=== PATIENT | female | born 1940 | race Caucasian/White ===

== ENCOUNTER → 2016-06-14 | Outpatient (CLI) | payer BC ==
--- NOTE | 2016-06-14 12:39 | MAMMOGRAPHY REPORT ---
BILATERAL DIGITAL SCREENING MAMMOGRAM WITH CAD: 06/14/2016 TECHNIQUE: Current study was also evaluated with a Computer Aided Detection (CAD) system. Bilatera l CC and MLO views were obtained. COMPARISON: Comparison is made to exams dated: 06/14/2015 mammogram, 06/11/2014 mammogram, 06/04/2012 ma mmogram, 05/30/2010 mammogram, 06/05/2013 mammogram, and 05/31/2011 mammogram - [facility] enter. BREAST COMPOSITION: There are scattered areas of fibroglandular density in both breasts. FINDINGS: No suspicious masses, calcifications, or areas of architectural distortion are noted in e ither breast. There has been no significant interval change compared to prior exams. Small benign-a ppearing mass in the left lateral breast is stable. Bilateral benign appearing calcifications are a lso not significantly changed. IMPRESSION: ACR BI-RADS CATEGORY 2: BENIGN There is no mammographic evidence of malignancy. A 1 year screening mammogram is recommended. The p atient will receive written notification of the results. Approximately 10% of breast cancers are not detected with mammography. A negative mammographic repor t should not delay biopsy if a clinically suggestive mass is present. Irene Guy M.D. ah/:06/14/2016 12:10:56 Rasper Machine Operator: Leana GARCIA)(Rehana), [facility] letter sent: Normal 1/2 BI-RADS Code: ACR BI-RADS Category 2: Benign
== END | disposition home or self-care (01) ==
LOC: C.MAMM 10:23
PROVIDERS: ATTEND Family Medicine
DX: Z12.31 Encounter for screening mammogram for malignant neoplasm of breast (principal)

== ENCOUNTER → 2017-06-19 | Outpatient (CLI) | payer BC ==
--- NOTE | 2017-06-19 15:12 | MAMMOGRAPHY REPORT ---
BILATERAL DIGITAL SCREENING MAMMOGRAM TOMOSYNTHESIS WITH CAD: 06/19/2017 CLINICAL HISTORY: Routine screening. Patient has no complaints. TECHNIQUE: Breast tomosynthesis in addition to standard 2D mammography was performed. Current study was also evaluated with a Computer Aided Detection (CAD) system. COMPARISON: Comparison is made to exams dated: 06/14/2016 mammogram, 06/14/2015 mammogram, 06/11/2014 mamm ogram, 06/05/2013 mammogram, 06/04/2012 mammogram, and 05/31/2011 mammogram - [facility] er. BREAST COMPOSITION: There are scattered areas of fibroglandular density in both breasts. FINDINGS: There is a 6 mm focal asymmetry in the upper outer anterior left breast, for which additio nal targeted ultrasound and possible additional mammographic views are recommended. No other suspicious mass, architectural distortion or cluster of microcalcifications is seen. IMPRESSION: ACR BI-RADS CATEGORY 0: INCOMPLETE EVALUATION: NEED ADDITIONAL IMAGING EVALUATION The 6 mm focal asymmetry in the left upper outer breast needs additional evaluation. The patient will be called to schedule an appointment. Approximately 10% of breast cancers are not detected with mammography. A negative mammographic report should not delay biopsy if a clinically suggestive mass is present. Yadi Vera M.D. ay/:06/19/2017 13:56:02 Mortgage Broker: Kaitlyn LEUNG(Isai)(Rehana)(BD), [facility] letter sent: Addl Imaging 0 BI-RADS Code: ACR BI-RADS Category 0: Incomplete Evaluation: Need Additional Imaging Evaluation
== END | disposition home or self-care (01) ==
LOC: C.MAMM 10:26
PROVIDERS: ATTEND Family Medicine
DX: Z12.31 Encounter for screening mammogram for malignant neoplasm of breast (principal); N64.89 Other specified disorders of breast

== ENCOUNTER → 2017-06-29 | Outpatient (CLI) | payer BC ==
--- NOTE | 2017-07-02 12:44 | MAMMOGRAPHY REPORT ---
ULTRASOUND OF LEFT BREAST: 06/29/2017 CLINICAL HISTORY: Callback from screening mammogram for left breast mass. COMPARISON: Comparison is made to exams dated: 06/19/2017 mammogram, 06/14/2016 mammogram, 06/14/2015 adama mogram, 06/11/2014 mammogram, 06/05/2013 mammogram, and 06/04/2012 mammogram - [facility] er. TECHNIQUE: Real-time targeted ultrasound of the left breast was performed. FINDINGS: Real-time, high-resolution targeted ultrasound was performed of the left upper outer quadra nt in the region of the mass seen on the recent screening mammogram. In the left breast at 3:00 darlene areolar region, there is a lobulated circumscribed 5 x 5 x 3 mm mass. The mass is predominantly anec hoic and contains a thin internal septation, however, there is a nodular isoechoic portion seen withi n the mass which could represent proteinaceous debris within a cyst, however, a solid component canno t be excluded. This corresponds with the mammographic mass and is indeterminant. Recommend ultrasou nd-guided aspiration versus biopsy for further evaluation. IMPRESSION: ACR BI-RADS CATEGORY 4: SUSPICIOUS - FOLLOW-UP RECOMMENDED Circumscribed 5 mm mass in the left 3:00 periareolar breast on ultrasound, which corresponds with the mammographic mass. The mass likely represents a complicated cyst although a mixed cystic and solid mass is not excluded. Recommend ultrasound-guided aspiration for further evaluation, with conversion to ultrasound-guided biopsy if the mass does not completely aspirate. A phone call was made to the physician's office to confirm faxed results were received. The patient was verbally notified of the results. She tentatively scheduled the biopsy before leaving the depart ment. Irene Guy M.D. ah/:06/29/2017 11:06:57 English As A Second Language Instructor: Irene Guy MD, [facility] letter sent: Abnormal / BI-RADS Code: ACR BI-RADS Category 4: Suspicious
== END | disposition home or self-care (01) ==
LOC: C.MAMM 10:13
PROVIDERS: ATTEND Family Medicine
DX: N63.21 Unspecified lump in the left breast, upper outer quadrant (principal)

== ENCOUNTER → 2017-07-04 | Outpatient (CLI) | payer BC ==
--- NOTE | 2017-07-04 09:32 | Discharge Instructions ---
Discharge Instructions Procedure Procedure Date: Jul 04, 2017. Reason for visit: Left Mass Asp Vs Bx. Discharge Discharge Date: Jul 04, 2017. Discharge Diagnosis: status post breast biopsy Instructions Activity Recommendations: Additional Limitations (see below) Return to School/Work: no limitations Recommended Home Diet: No Limitations Provider Instructions: ACTIVITY RECOMMENDATIONS: * No lifting, pushing, pulling or exercising the affected side for three days. RETURN TO SCHOOL/WORK: * You may return to work/school after the procedure, but do not perform any strenuous activities for 24 to 48 hours. MEDICATIONS: * Tylenol (two 325 mg) every four to six hours if needed for mild pain (if not allergic to Tylenol). DIET: * Resume previous diet. SPECIAL CARE INSTRUCTIONS: * Keep biopsy site dry for 24 hours. May shower after 24 hours, but do not soak (bathe) incision. * May remove Tegaderm (plastic patch) tomorrow AFTER showering. * Leave the steri-strips on for one week. Allow the steri-strips to fall off by themselves. If not off after one week, you may remove them. You may place a Bandaid crosswise over the strips, if desired. * Apply ice 10 minutes on and 10 minutes off as needed. * Wear a bra at bedtime to sleep more comfortably for 2-3 days. * Your referring physician should have the results after approximately 5 to 7 business days. * Call for unusual bleeding, fever, drainage, etc or if you have any questions call during normal business hours or after hours call Dr Guy, . FOLLOW UP VISIT: Follow-up with Referring Physician as scheduled. Edd Landryy Recommendations: Call your doctor if: * Temperature above 101 degrees * Pain not relieved by pain medicine ordered * There is increased drainage or redness from any incision * You have any unanswered questions or concerns. Your Doctors Instructions noted above were prepared by provider Irene Guy. Patient Signature Section: Patient Instructions Signature Page Pat Lopesleydi Patient (or Guardian) Signature/Date: I have read and understand the instructions given to me by my caregivers. Caregiver/RN/Doctor Signature/Date: The above-named patient and/or guardian has received patient instructions on this date. + Original Patient Signature Page (only) stays with chart. Please make copy for patient.
--- NOTE | 2017-07-05 07:47 | MAMMOGRAPHY REPORT ---
ULTRASOUND GUIDED BIOPSY LEFT BREAST: 07/04/2017 CLINICAL HISTORY: Left 3:00 breast mass. PATIENT CONSENT: The procedure, risks and benefits were discussed with the patient and informed writt en consent was obtained. A timeout was performed immediately prior to the procedure. PROCEDURE DESCRIPTION: With ultrasound guidance, aseptic technique, and lidocaine as the local anesth etic (1% lidocaine to anesthetize the skin and 1% lidocaine with epinephrine to anesthetize the deepe r tissues), an attempt was made to aspirate the mass in the left 3:00 breast. The mass partially asp irated, however, the isoechoic portion did not completely aspirate, therefore, the decision was made to biopsy the residual mass. With ultrasound guidance, the mass of concern in the left 3:00 breast w as sampled 3 times with a 14-gauge Achieve biopsy needle. Immediately thereafter, with ultrasound gu idance, aseptic technique, and lidocaine as the local anesthetic, a metallic localizer clip was place d at the biopsy site. Direct pressure was applied to the site immediately post procedure and hemosta sis was achieved. Postprocedure unilateral mammograms were performed to confirm clip placement. The patient tolerated the procedure without complication. She was given wound care instructions. The sp ecimens were sent to pathology for analysis. COMPARISON: Comparison is made to exams dated: 06/29/2017 ultrasound, 06/19/2017 mammogram, 06/14/2016 m ammogram, 06/14/2015 mammogram, 06/11/2014 mammogram, and 06/05/2013 mammogram - [facility]. IMPRESSION: ULTRASOUND GUIDED BIOPSY Ultrasound-guided core needle biopsy of the left 3:00 breast mass, with clip placement. The patient will receive pathology results from her referring provider. Irene Guy M.D. /:07/04/2017 09:34:20 Drag Down: Larissa LEUNG(Isai)(Rehana), [facility]
--- NOTE | 2017-07-05 07:52 | MAMMOGRAPHY REPORT ---
UNILATERAL LEFT DIGITAL DIAGNOSTIC MAMMOGRAM TOMOSYNTHESIS: 07/04/2017 CLINICAL HISTORY: Status post left breast biopsy. TECHNIQUE: Breast tomosynthesis in addition to standard 2D mammography was performed. Postprocedura l left CC and ML tomosynthesis images were obtained. COMPARISON: Comparison is made to exams dated: 06/29/2017 ultrasound, 06/19/2017 mammogram, 06/14/2016 m ammogram, 06/14/2015 mammogram, 06/11/2014 mammogram, and 06/05/2013 mammogram - [facility]. BREAST COMPOSITION: There are scattered areas of fibroglandular density in the left breast. FINDINGS: A new biopsy marker clip is seen at the site of the biopsied mass in the left breast at mario roximately 3:00. No significant postbiopsy hematoma is seen. IMPRESSION: POST PROCEDURE IMAGING FOR MARKER PLACEMENT New biopsy marker clip status post left breast biopsy. Pathology results are pending. Approximately 10% of breast cancers are not detected with mammography. A negative mammographic report should not delay biopsy if a clinically suggestive mass is present. Irene Guy M.D. /:07/04/2017 09:41:44 Bible Reader: Fanny LEUNG(Isai)(M), [facility] BI-RADS Code: Post Procedure Imaging For Marker Placement
== END | disposition home or self-care (01) ==
LOC: C.MAMM 08:59
PROVIDERS: ATTEND Family Medicine
DX: N63.20 Unspecified lump in the left breast, unspecified quadrant (principal); N60.12 Diffuse cystic mastopathy of left breast; N60.82 Other benign mammary dysplasias of left breast

== ENCOUNTER → 2017-07-13 | Outpatient (CLI) | payer BC ==
[2017-07-13 11:09] LABS: BASO % 0.8 %; BASO ABS # 0.06 K/uL (0-0.2); EOS % 3.5 %; EOS ABS # 0.27 K/uL (0-0.5); HEMATOCRIT 39.5 % (37-47); HEMOGLOBIN 13.9 g/dL (12.0-16.0); IG# 0.01 K/uL (0.00-0.02); LYMPH % 23.1 %; LYMPH ABS # 1.79 K/uL (1.2-3.4); MEAN CELL VOLUME 90.2 fL (80-100); MEAN CORPUSCULAR HEMOGLOBIN 31.7 pg (25-34); MEAN CORPUSCULAR HGB CONC 35.2 g/dl (32-36); MEAN PLATELET VOLUME 10.1 fL (7.4-10.4); MONO % 7.6 %; MONO ABS # 0.59 K/uL (0.11-0.59); NEUT % 64.9 %; NEUT ABS # 5.02 K/uL (1.4-6.5); PLATELET COUNT 280 K/uL (130-400); RED CELL DISTRIBUTION WIDTH CV 14.2 % (11.5-14.5); RED CELL DISTRIBUTION WIDTH SD 46.8 fL (36.4-46.3); WHITE BLOOD COUNT 7.74 K/uL (4.8-10.8)
[2017-07-13 11:26] LABS: ALBUMIN 3.5 gm/dl (3.4-5.0); ALT/SGPT 27 U/L (12-78); AST/SGOT 22 U/L (15-37); BLOOD UREA NITROGEN 16 mg/dl (7-18); CALCIUM 9.2 mg/dl (8.5-10.1); CARBON DIOXIDE 29 mmol/L (21-32); CREATININE 0.84 mg/dl (0.60-1.20); GLUCOSE 96 mg/dl (70-99); POTASSIUM 3.6 mmol/L (3.5-5.1); SODIUM 137 mmol/L (136-145)
[2017-07-13 11:35] LABS: ALKALINE PHOSPHATASE 76 U/L (45-117); TOTAL PROTEIN 7.4 gm/dl (6.4-8.2)
== END | disposition home or self-care (01) ==
LOC: C.LABBC 09:02
PROVIDERS: ATTEND Family Medicine
DX: R53.83 Other fatigue (principal)

== ENCOUNTER 2018-09-27 04:52 | Inpatient (IN) ==
--- NOTE | 2018-09-12 15:04 | Anesthesiology Consultation ---
Date of Service September 12, 2018 Assessment & Plan (1) Encounter for pre-operative examination: Chart Review Chart Review: Acceptable Risk for Surgery and Patient NOT seen in Pre Admission Testing History Surgery Operation Date: 09/27/18 07:00 Proposed Procedures p Right Anterior Total Hip Arthroplasty - Stephen Arnold DO Height/Weight Height: 5 ft 2 in Weight: 95.254 kg Allergies Allergy/AdvReac Type Severity Reaction Status Date / Time No Known Allergies Allergy Verified 08/20/18 12:16 Medications Home Medications Medication Instructions Recorded Confirmed Last Taken [place]/Co 10 1 tab PO QAM 01/03/18 08/20/18 Unknown cyanocobalamin (vitamin B-12) 1,000 mcg PO QAM 01/03/18 08/20/18 Unknown [Vitamin B-12] glucosamine sulfate [Glucosamine] 500 mg PO QAM 01/03/18 08/20/18 Unknown ibuprofen [Advil] 200 mg PO QID PRN 01/03/18 08/20/18 Unknown lisinopril-hydrochlorothiazide 1 tab PO QAM 01/03/18 08/20/18 02/07/18 08:00 multivitamin 1 tab PO QAM 01/03/18 08/20/18 Unknown omeprazole 20 mg PO QAM 01/03/18 08/20/18 02/08/18 04:15 simvastatin 20 mg PO HS 01/03/18 08/20/18 02/07/18 21:00 aspirin 325 mg PO HS 08/20/18 08/20/18 Unknown Past Medical History Medical History GERD (gastroesophageal reflux disease) Hyperlipidemia Hypertension Obesity Osteoarthritis Past Family History Family History Grandmother Diabetes mellitus, type 2 Past Surgical History Surgical History History of hysteroscopy D+C History of left hip replacement 02/08/18: SAB x1 at L3-L4 at [facility] Hx of colonoscopy Hx of hysterectomy BSO Hx of laparoscopy DERMOID CYST REMOVED Nausea and vomiting after administration of anesthetic agent Social History Smoking Status: Never smoker Do You Dip or Chew Tobacco: No Hx Alcohol Use: Yes Alcohol type: wine alcohol intake frequency: holidays/special occasions only Hx Substance Use: No substance use type: does not use Testing Laboratory Results 09/10/18 WBC 10.17 H/H 13.8/39.3 PLATELETS 291 SODIUM 138 POTASSIUM 3.5 CHLORIDE 104 CO2 27 BUN 20 CREATININE 0.90 GLUCOSE 104 PT 10.5 PTT 28.7 INR 1.0 T&S O+Ab- Electrocardiogram Date: 09/10/18 Findings: + NSR @ (75) Chest X-Ray Date: 09/10/18 Findings: + NAD Cardiac silhouette is mildly enlarged, unchanged. Moderate hiatal hernia. Calcification of the thoracic aortic arch. Mild linear retrocardiac opacities suggest atelectasis/scarring. Sigmoidal scoliosis of the thoracolumbar spine.
--- NOTE | 2018-09-26 16:27 | History & Physical Report ---
Date of Service September 26, 2018 Assessment & Plan (1) Osteoarthritis of right hip: We will proceed with a right anterior total hip arthroplasty. Postoperatively she will be placed on aspirin for DVT prophylaxis and kept overnight for postoperative medical management. She plans to use energy p hysical therapy upon discharge. Present on Admission?: Yes History of Present Illness Chief Complaint: Primary osteoarthritis of the right hip Primary Care Provider: William Stewart is a pleasant 78-year-old female who presented to our office with complaints of bilateral hip and groin pain. X-rays and clinical examination were diagnostic for primary osteoarthritis of both hips. She underwent a left anterior total hip arthroplasty in February 2018 and did very well with that. Unfortunately she still having a lot of pain in her right hip. She has elected to proceed with a right anterior total hip arthroplasty. Allergies Allergy/AdvReac Type Severity Reaction Status Date / Time No Known Allergies Allergy Verified 08/20/18 12:16 Home Medications Home Medications Medication Instructions Recorded Confirmed Type [place]/Co 10 1 tab PO QAM 01/03/18 08/20/18 History cyanocobalamin (vitamin B-12) 1,000 mcg PO QAM 01/03/18 08/20/18 History [Vitamin B-12] glucosamine sulfate [Glucosamine] 500 mg PO QAM 01/03/18 08/20/18 History ibuprofen [Advil] 200 mg PO QID PRN 01/03/18 08/20/18 History lisinopril-hydrochlorothiazide 1 tab PO QAM 01/03/18 08/20/18 History multivitamin 1 tab PO QAM 01/03/18 08/20/18 History omeprazole 20 mg PO QAM 01/03/18 08/20/18 History simvastatin 20 mg PO HS 01/03/18 08/20/18 History aspirin 325 mg PO HS 08/20/18 08/20/18 History Past Med/Surg History Medical History GERD (gastroesophageal reflux disease) Hyperlipidemia Hypertension Obesity Osteoarthritis Surgical History History of hysteroscopy D+C History of left hip replacement 02/08/18: SAB x1 at L3-L4 at [facility] Hx of colonoscopy Hx of hysterectomy BSO Hx of laparoscopy DERMOID CYST REMOVED Nausea and vomiting after administration of anesthetic agent Family History Grandmother Diabetes mellitus, type 2 Social History Preferred Language: Sami Communication Ability: Effective Beliefs That Will Affect Care: None Current Living Situation: Spouse Feels Safe at Home: Yes Smoking Status: Never smoker Second Hand Exposure: No Hx Alcohol Use: Yes Alcohol type: wine Hx Substance Use: No Review of Systems All systems reviewed & are unremarkable except as noted in HPI & below Physical Exam Constitutional: WD/WN, vitals as above Eyes: PERRL, conjunctivae normal, anicteric sclerae ENMT: external ear and nose normal, oropharynx normal Neck: trachea midline, no thyromegaly Respiratory: normal respiratory effort Cardiovascular: RRR, no murmur, no edema Gastrointestinal (Abdomen): normal bowel sounds, soft, nontender, no hepatosplenomegaly Musculoskeletal: Physical examination of the right hip reveals decreased range of motion with flexion, internal and external rotation. There is significant groin pain with forced internal rotation of the hip his leg lengths are essentially equal. Psychiatric: A+Ox3, euthymic affect Results & Data Diagnostic Findings Radiographs of the right hip and pelvis demonstrate advanced osteoarthritis with joint space narrowing osteophyte formation and ubgx-ae-wduo articulation.
[2018-09-27] MEDS ORDERED: LR 60ML/HR IV SCH (06:00)
[2018-09-27] MEDS ORDERED: ROPIVACAINE 0.5% HCL/PF 150 MG, BUPIVACAINE 0.5% MPF 30 ML, EPINEPHrine 30MG/30ML (OR U... INFIL SCH (06:00)
[2018-09-27] MEDS ORDERED: TRANEXAMIC ACID 1,000 MG **IV Pre-op IV SCH (06:00)
[2018-09-27] MEDS ORDERED: CEFAZOLIN 2000MG 2,000 MG/15 ML SYR IV SCH (06:00)
[2018-09-27] MEDS ORDERED: GABAPENTIN 300 MG PO SCH (06:00)
[2018-09-27] MEDS ORDERED: LR 500ML BOLUS, THEN 15ML/HR IV SCH (06:00)
[2018-09-27] MEDS ORDERED: ACETAMINOPHEN 500 MG TAB PO SCH (06:00)
[2018-09-27] MEDS ORDERED: FAMOTIDINE 20 MG TAB PO SCH (06:00)
[2018-09-27] MEDS ORDERED: MIDAZOLAM HCL 1 MG/ML 2ML VIAL ONE (06:24)
[2018-09-27] MEDS ORDERED: fentaNYL citrate 100 MCG/2 ML VIAL ONE (06:24)
[2018-09-27] MEDS ORDERED: BUPIVACAINE 0.5 % 5 MG/1 ML PF 10ML VIAL ONE (06:29)
[2018-09-27] MEDS ORDERED: ORTHO JOINT ANESTHETIC ONE (06:29)
[2018-09-27] MEDS ORDERED: TRANEXAMIC ACID 1,000 MG **IV Intra-op IV SCH (06:30)
--- NOTE | 2018-09-27 06:36 | History & Physical Bridge Note ---
Date of Service September 27, 2018 History & Physical Bridge Note I have examined the patient, reviewed the History & Physical and in the interval since the performance of the History & Physical I have noted the following changes of clinical significance: no changes noted
[2018-09-27] MEDS ORDERED: PHENYLEPHRINE 100MCG/ML 5ML SYR IV PRN (06:56)
[2018-09-27] MEDS ORDERED: ATROPINE SULFATE 0.1 MG/ML 10ML SYR IV PRN (06:56)
[2018-09-27] MEDS ORDERED: ePHEDrine sulfate 50 MG/ML AMP IV PRN (06:56)
[2018-09-27] MEDS ORDERED: HYDROmorphone INJ 1 MG/ML SYRINGE IV PRN (06:56)
[2018-09-27] MEDS ORDERED: ONDANSETRON INJ 2 MG/ML 2 ML VIAL IV PRN ×2 (06:56→10:01)
[2018-09-27] MEDS ORDERED: KETOROLAC 30 MG/ML VIAL IV PRN (06:56)
[2018-09-27] MEDS ORDERED: PROPOFOL IV EMULSION 10 MG/ML 20 ML VIAL IV ONE ×2 (07:18→07:45)
[2018-09-27] MEDS ORDERED: LIDOCAINE HCL 2% 2 ML VIAL/AMP(20MG/ML) INFIL ONE (07:18)
[2018-09-27] MEDS ORDERED: ePHEDrine sulfate 50 MG/ML AMP ONE (07:19)
[2018-09-27] MEDS ORDERED: ONDANSETRON INJ 2 MG/ML 2 ML VIAL ONE (07:19)
[2018-09-27] MEDS ORDERED: PHENYLEPHRINE 100MCG/ML 5ML SYR ONE (07:19)
--- NOTE | 2018-09-27 08:37 | Operative Report ---
Post Operative Report Pre & Post Diagnosis Operation Date: 09/27/18 07:00 Pre-Op Diagnosis: RIGHT HIP DEGENERATIVE JOINT DISEASE Post-Op Diagnosis: RIGHT HIP DEGENERATIVE JOINT DISEASE Procedure Operation Date: 09/27/18 07:00 Actual Procedures p Right Anterior Total Hip Arthroplasty, Uncemented(Right) - Stephen Arnold DO Surgeon Stephen Arnold DO Rn Teacher None Estimated Blood Loss 200 Findings Consistent with Post-Op Diagnosis Specimens Right femoral head Complications none Disposition Disposition: Recovery Room Indications Pat is a pleasant 78-year-old female who presented my office with complaints of bilateral hip pain. X-rays and clinical examination were diagnostic for primary osteoarthritis of both hips. She underwent a left anterior total hip arthroplasty in February 2018 and did well with that. Unfortunately she was still having a lot of right hip pain. She elected to undergo a right anterior total hip arthroplasty. Description of Procedure Implants used Biomet Taperloc total hip arthroplasty system with a size 8 standard offset Taperloc stem, a 48 mm G7 cup with a 25mm screw, an E1 polyethylene liner, a 32 mm ceramic head with a -3 neck. Patient arrived at the hospital for the above procedure. They were seen in the preoperative holding area and the operative extremity was identified and signed. They were given a spinal anesthetic. They were given a preoperative antibiotic and TXA. They were taken back To the operating room and laid on the table in the supine position. The leg was brought out through a Puristst leg positioner. The hip was then prepped and draped in sterile fashion. A timeout was done and the patient in upper extremities properly identified. An anterior approach was used. Dissection was taken down through the fascia and the tensor muscle belly was retracted laterally and the rectus was retracted medially. The circumflex vessels were identified and ligated. The capsule was then incised and tagged for later repair. The femoral neck was then cut and the femoral head was removed. The acetabulum was exposed. Time was spent doing a complete circumferential labral release. Sequential reaming of the acetabulum up to a size 47 reamer was done. Final reamings were done under fluoroscopy to ensure appropriate version. A Biomet 48 mm G7 cup was then impacted into place. A single 25 mm screw was placed. The E1 polyethylene liner was then snapped into place. Surrounding soft tissues were then injected with 100 cc of an orthopedic pain control cocktail. The proximal femur was then exposed. Sequential broaching up to a size 8 broach was done. Off that broach a size 32 head with a -3 neck was trialed. The hip was reduced and fluoroscopic images showed anatomic alignment of the implants in acceptable length. The broach was removed. The final size 8 standard offset Taperloc stem was then impacted into place. A ceramic 32 mm head with a -3 neck was then impacted into place in the hip was reduced. Final fluoroscopic images showed anatomic reduction of the hip. The capsule was then closed with #1 Vicryl suture. A dilute betadyne lavage was then done for 3 minutes. The joint was then irrigated with normal saline solution. The fascia was closed with #1 PDS suture. Skin was closed with 2-0 Vicryl, marcelle, and a Mary VAC dressing. The patient was then transferred to a hospital bed and taken to the post anesthesia care unit in stable condition. They tolerated the procedure well. I attest to the content of the Intraoperative Record and any orders documented therein. Any exceptions are noted below.
--- NOTE | 2018-09-27 08:58 | Fluoroscopy Report ---
FL hip RT 1V CLINICAL HISTORY: RIGHT ANTERIOR THApain COMPARISON STUDY: None FLUOROSCOPY TIME: 25 seconds NUMBER OF FLUOROSCOPIC IMAGES: 3 FINDINGS: Image intensifier was utilized for a right hip total arthroplasty IMPRESSION: Image intensifier usage for a total right hip arthroplasty. The above report was generated using voice recognition software. It may contain grammatical, syntax or spelling errors. Electronically signed by: Vivek Denny M.D. 09/27/2018 8:56 AM
--- NOTE | 2018-09-27 09:23 | XRay Report ---
XR hip 1V RT w pelvis HISTORY: 78 years-old Female IN PACU - A/P PELVIS and LATERAL HIP right hip total joint arthroplast y. History of degenerative joint disease COMPARISON: Pelvis and left hip radiographs 02/08/2018 TECHNIQUE: AP view of the pelvis with crosstable lateral view of the right hip FINDINGS: Bilateral hip total joint arthroplasties, new on the right. Lateral skin marcelle are noted with expec yan postsurgical soft tissue swelling and deep tissue air with surgical drainage catheter. No acute f racture or retained foreign body. IMPRESSION: Satisfactory alignment of the right hip total joint arthroplasty. The above report was generated using voice recognition software. It may contain grammatical, syntax o r spelling errors. Electronically signed by: Phillip Saini M.D. 09/27/2018 9:22 AM
--- NOTE | 2018-09-27 09:47 | Anesthesiology Progress Note ---
Date of Service September 27, 2018 Anesthesia Post Procedure Vital Signs Vital Signs: Temp Pulse Resp BP Pulse Ox 09/27/18 09:40 36.4 C L 65 16 121/74 97 09/27/18 09:30 36.4 C L 63 15 116/81 93 09/27/18 09:20 36.6 C 63 16 128/78 94 09/27/18 09:10 36.6 C 73 16 128/93 97 09/27/18 09:00 36.6 C 65 21 114/65 96 09/27/18 08:50 36.6 C 73 16 104/65 100 09/27/18 08:41 36.6 C 74 16 103/68 98 09/27/18 05:35 36.8 C 88 18 143/79 H 96 Transfer of Care Handoff Completed per policy Notes Mental Status: alert / awake / arousable Patient Amnestic to Procedure: Yes Nausea / Vomiting: adequately controlled Pain: adequately controlled Airway Patency, RR, SpO2: stable & adequate BP & HR: stable & adequate Hydration State: stable & adequate Anesthetic Complications: no major complications apparent
[2018-09-27] MEDS ORDERED: NALOXONE HCL 0.4 MG/1 ML VIAL/CARP IV PRN (10:01)
[2018-09-27] MEDS ORDERED: MAGNESIUM HYDROXIDE SUSP 30 ML UDC PO PRN (10:01)
[2018-09-27] MEDS ORDERED: OXYCODONE HCL IR 5 MG TAB (IMMEDIATE RELEASE) PO PRN (10:01)
[2018-09-27] MEDS ORDERED: BISACODYL 10 MG SUPP PR PRN (10:01)
[2018-09-27] MEDS ORDERED: METOCLOPRAMIDE HCL INJ 5 MG/ML 2 ML VIAL IV PRN (10:01)
[2018-09-27] MEDS ORDERED: HYDROmorphone INJ 0.5 MG/0.5 ML SYR IV PRN (10:01)
[2018-09-27] MEDS: SODIUM CHLORIDE 0.9% 1000ML 1,000 ML IV SCH ×2 (10:23→19:45)
[2018-09-27] MEDS: MULTIVITAMIN TAB PO SCH (10:25)
[2018-09-27] MEDS: ASPIRIN 81 MG ECTAB PO SCH ×2 (10:25→20:52)
[2018-09-27] MEDS: LISINOPRIL/HCTZ 10/12.5MG TAB PO SCH (10:25)
[2018-09-27] MEDS: DOCUSATE SODIUM 100 MG CAP PO SCH ×2 (10:26→20:52)
[2018-09-27] MEDS: PANTOprazole 40 MG TAB PO SCH (10:26)
[2018-09-27] MEDS: KETOROLAC TROMETHAMINE 15 MG/ML VIAL IV SCH ×3 (12:39→23:36)
[2018-09-27] MEDS: ACETAMINOPHEN 500 MG TAB PO SCH ×2 (13:37→20:52)
[2018-09-27] MEDS: CEFAZOLIN 2000MG 2,000 MG/15 ML SYR IV SCH ×2 (13:37→20:51)
[2018-09-27] MEDS ORDERED: SENNA 8.6 MG TAB PO SCH (21:00)
[2018-09-27] MEDS ORDERED: SIMVASTATIN 20 MG TAB PO SCH (21:00)
[2018-09-28] MEDS: KETOROLAC TROMETHAMINE 15 MG/ML VIAL IV SCH (05:34)
[2018-09-28] MEDS: ACETAMINOPHEN 500 MG TAB PO SCH (05:34)
[2018-09-28 07:08] LABS: Basophils # (auto) 0.03 K/uL (0-0.2); Basophils % (auto) 0.2 %; Eosinophils % (auto) 0.7 %; Hematocrit (blood only) 32.4 % (37-47); Hemoglobin 11.7 g/dL (12.0-16.0); Immature Granulocytes # (auto) 0.03 K/uL (0.00-0.02); Immature Granulocytes % (auto) 0.2 %; Lymphocytes # (auto) 1.43 K/uL (1.2-3.4); Lymphocytes % (auto) 10.5 %; Mean Corpuscular Hgb Conc 36.1 g/dL (32-36); Mean Corpuscular Volume 87.3 fL (80-100); Mean Platelet Volume 10.3 fL (7.4-10.4); Monocytes # (auto) 1.07 K/uL (0.11-0.59); Monocytes % (auto) 7.8 %; Neutrophils # (auto) 11.01 K/uL (1.4-6.5); Neutrophils % (auto) 80.6 %; Platelet Count 201 K/uL (130-400); RDW Coefficient of Variation 14.9 % (11.5-14.5); RDW Standard Deviation 47.7 fL (36.4-46.3); Red Blood Count 3.71 M/uL (4.2-5.4); White Blood Count 13.67 K/uL (4.8-10.8)
[2018-09-28 07:33] LABS: BUN Creatinine Ratio 23.5 (10-20); Calcium 8.4 mg/dl (8.5-10.1); Creatinine Clr Calc Pharmacy 60.3 ml/min; Est GFR (African American) 79.4; Est GFR (Non-African American) 68.5; Potassium 3.6 mmol/L (3.5-5.1)
[2018-09-28] MEDS ORDERED: TRAMADOL HCL 50 MG TABLET PO PRN (07:54)
--- NOTE | 2018-09-28 07:57 | Orthopedic Progress Note ---
Date of Service September 28, 2018 Assessment & Plan (1) Osteoarthritis of right hip: Overall she is doing fairly well. She is a little bit of soreness in the lateral aspect of her hip. She is waiting to get physical therapy this morning. She is on aspirin for DVT prophylaxis. Going to change her pain medications to tramadol for pain control. I told her she could go home this afternoon if she feels steady. She said she would like to go home this afternoon but she wants to see how she does with physical therapy first. That seems reasonable. Nuzhat see her in the office 2 weeks postoperatively if she leaves today otherwise I will see her tomorrow morning. Present on Admission?: Yes Subjective Pat was seen and examined at bedside this morning. Overall she is doing fairly well with her right hip. She is a little bit of soreness laterally. She is been ambulating around her room without much difficulty. She was able to get some sleep last night. She has no complaints. Physical Exam Musculoskeletal: On physical examination of the right hip, the Mary VAC dressings to suction. Her leg lengths are equal. She is active dorsi flexion and plantarflexion of her right ankle. Sensation is intact throughout. Results & Data Vital Signs (Past 12 Hours) Vital Signs Temp Pulse Pulse Resp BP BP Pulse Ox 09/28/18 07:19 36.5 C 83 16 115/75 98 09/28/18 04:39 65 107/72 09/28/18 03:08 36.4 C L 72 18 90/61 L 98 09/27/18 23:15 36.7 C 67 16 101/67 99 09/27/18 20:38 36.4 C L 60 16 97/65 L 97 Laboratory Results H & H 09/28/18 Range/Units 06:43 Hgb 11.7 L (12.0-16.0) g/dL Hct 32.4 L (37-47) % Diagnostic Findings Postoperative x-rays of the right hip show the prosthesis to be in anatomic alignment without any evidence of fracture, dislocation, or loosening.
--- NOTE | 2018-09-28 08:03 | Discharge Summary ---
Date of Service September 28, 2018 Admission HPI Per Admitting Provider Pat is a pleasant 78-year-old female who presented to our office with complaints of bilateral hip and groin pain. X-rays and clinical examination were diagnostic for primary osteoarthritis of both hips. She underwent a left anterior total hip arthroplasty in February 2018 and did very well with that. Unfortunately she still having a lot of pain in her right hip. She has elected to proceed with a right anterior total hip arthroplasty. Specialty Data Orthopedic H & H 09/28/18 Range/Units 06:43 Hgb 11.7 L (12.0-16.0) g/dL Hct 32.4 L (37-47) % Discharge Data Consultations 09/28/18 08:00 Consult Case Management - Discharge Planning Routine Procedures Performed Operation Date: 09/27/18 07:00 Actual Procedures p Right Anterior Total Hip Arthroplasty, Uncemented(Right) - Stephen Arnold DO Hospital Course (1) Osteoarthritis of right hip: On September 27, 2018 and arrived at [facility] and underwent a right anterior total hip arthroplasty without complication. She had a spinal anesthetic. Postoperatively she was started on aspirin for DVT prophylaxis and discharged to general orthopedic floors. Her hospital course was uneventful. On postop day #1 her H&H was stable and her pain was well controlled. She was able to ambulate well with physical therapy. She was switched to tramadol for pain control. She was then discharged to home with [facility]. She will follow-up with orthopedics in 2 weeks. Discharge Instructions Home Medications Medication Instructions Recorded Confirmed [place]/Co 10 1 tab PO QAM 01/03/18 09/27/18 cyanocobalamin (vitamin B-12) 1,000 mcg PO QAM 01/03/18 09/27/18 [Vitamin B-12] glucosamine sulfate [Glucosamine] 500 mg PO QAM 01/03/18 09/27/18 ibuprofen [Advil] 200 mg PO QID PRN 01/03/18 09/27/18 lisinopril-hydrochlorothiazide 1 tab PO QAM 01/03/18 09/27/18 multivitamin 1 tab PO QAM 01/03/18 09/27/18 omeprazole 20 mg PO QAM 01/03/18 09/27/18 simvastatin 20 mg PO HS 01/03/18 09/27/18 aspirin 325 mg PO HS 08/20/18 09/27/18 Previous Rx's Medication Instructions Recorded aspirin [Ecotrin Low Strength] 81 mg PO BID #84 tab 09/28/18 tramadol 50 mg PO Q4H PRN #40 tab 09/28/18 tramadol 50 mg PO Q6H PRN #40 tab 09/28/18
[2018-09-28] MEDS: ASPIRIN 81 MG ECTAB PO SCH (09:30)
[2018-09-28] MEDS: DOCUSATE SODIUM 100 MG CAP PO SCH (09:30)
[2018-09-28] MEDS: PANTOprazole 40 MG TAB PO SCH (09:31)
[2018-09-28] MEDS: MULTIVITAMIN TAB PO SCH (09:31)
[2018-09-28] MEDS: LISINOPRIL/HCTZ 10/12.5MG TAB PO SCH (09:31)
== END 2018-09-28 11:45 | disposition home or self-care (01) | DRG 470 ==
LOC: ASU 04:52 → 3E 10:07

== ENCOUNTER 2023-11-04 15:31 | Inpatient (IN) ==
--- NOTE | 2023-11-04 16:15 | Emergency Department Note ---
Impression & Plan Advancing dementia, Failure to thrive in adult, Twitching ED Provider Note NAME: MARTINEZ Woodard [facility] AGE: 83 SEX: F : 1940 ARRIVES VIA: Ambulance INFORMANT: Patient ED PROVIDER(S): Deon Bhatti MD CHIEF COMPLAINT: Weakness PLAN: Disposition: Admit MEDICAL DECISION MAKING: The patient is an 83-year-old woman with a past medical history of advancing dementia, failure to thrive, hyperlipidemia who presents to emergency department via EMS from her assisted living facility/memory care unit at [facility] and then accompanied by her for evaluation of worsening cognitive decline over the past several weeks in addition to progressive ambulatory dysfunction where she has been unable to "use her legs for the past several weeks" per her . He further adds that today she became more withdrawn with and has been "twitching". The patient's reports that normally the patient is awake and alert though with confusion. On arrival the patient is no acute distress, afebrile heart in 110s and vital signs otherwise stable. She appears clinically dry. She appears cachectic. At this time the patient will not open her eyes but will speak words intermittently. She moves bilateral upper extremities purposefully but will not move her legs and otherwise difficult to assess due to inability to follow commands. EKG without overt acute ischemia. CXR negative for acute cardiopulmonary process per my personal preliminary review/interpretation. WBC, hemoglobin and platelets within normal limits. Chemistry without metabolic acidosis. VBG is unremarkable. Chemistry without metabolic acidosis. Electrolytes and LFTs unremarkable. High-sensitivity troponin 9.9, within normal limits. Lipase normal. TSH within normal limits. UA without evidence of infection. 1+ ketones are noted consistent the patient clinically dry appearance. COVID-19, influenza and RSV PCR were negative. CT of the head was negative for acute abnormalities. CT of the cervical spine also negative for acute abnormalities. CT of the abdomen pelvis without acute findings. Given the patient's worsening clinical decline suspected be related to advancing dementia patient's agrees with plan for admission for further evaluation given she is unable to be managed at her current assisted living facility. Case was discussed with Justus Lozano [facility], with Dr. Stack, [facility] hospitalist who will evaluate the patient for admission. Further management per admitting team. Triage Nursing notes reviewed and agree them. Prior/external medical records reviewed Vital Signs: reviewed Differential diagnosis: Infection, hypoglycemia, electrolyte abnormalities, overdose, toxicologic, cardiac sources, intracerebral event, neurologic, trauma, as well as other pathologies. ER treatment provided: See below. Diagnostics interpreted by me: ECG: Normal sinus rhythm, 76 bpm, no ectopy, no overt ST elevation or depression, QTc 416, QRS 88. Cardiac Monitoring: An order for continuous cardiac monitoring was placed and demonstrated Normal sinus rhythm, 76 bpm, no ectopy. Laboratory studies: See below Imaging studies: See below Consultation(s): Justus Lozano, [facility], with Dr. Stack, [facility] hospitalist HPI: The patient is an 83-year-old woman with a past medical history of advancing dementia, failure to thrive, hyperlipidemia who presents to emergency department via EMS from her assisted living facility/memory care unit at [place] and then accompanied by her for evaluation of worsening cognitive decline over the past several weeks in addition to progressive ambulatory dysfunction where she has been unable to "use her legs for the past several weeks" per her . He further adds that today she became more withdrawn with and has been "twitching". The patient's reports that normally the patient is awake and alert though with confusion. At this time the patient will not open her eyes but will speak words intermittently. She moves bilateral upper extremities purposefully but will not move her legs and otherwise difficult to assess due to inability to follow commands. She appears clinically dry. ROS: See above HPI for pertinent positives & negatives. A total of 10 systems reviewed and were otherwise negative. VITALS:See Below PHYSICAL EXAMINATION: GENERAL: Awake, chronically ill-appearing, cachectic, in no distress HENT: Normocephalic, atraumatic. Oropharynx with dry mucous membranes and otherwise unremarkable. EYES: Normal conjunctiva. Sclera non-icteric. NECK: Supple. No nuchal rigidity. FROM. No JVD. RESPIRATORY: Clear to auscultation. CARDIAC: Tachycardic rate, normal rhythm. Extremities warm and well perfused. Pulses equal. ABDOMEN: Soft, non-distended. No tenderness to palpation. No rebound or guarding. No masses. MUSCULOSKELETAL: Chest examination reveals no tenderness. The back is symmetrical on inspection without obvious abnormality. There is no CVA tenderness to palpation. No joint edema. LOWER EXTREMITIES: Calves are equal size bilaterally and non-tender. No edema. No discoloration. NEURO: Confused. Does not follow commands. Moves bilateral upper extremities with generalized weakness. Limited BLE exam as patient does not follow commands. Withdrawal with Babinski stimulus. No clonus. 1+ patellar reflexes bilaterally. SKIN: No rash or jaundice noted. Deon Bhatti MD Past Med/Surg History Problem List (Updated 11/05/23 @ 00:57 by Deon Bhatti MD) Twitching (Acute) Failure to thrive in adult (Acute) Vulvitis Osteoarthritis of both knees Impaired glucose tolerance Osteoporosis Hypertension Advancing dementia (Acute) Aortic stenosis Ovarian failure, postablative Mild cognitive impairment Hyperlipidemia Osteoarthritis of right hip Osteoarthritis of left hip Medical History Abdominal mass, left lower quadrant Obesity Osteoarthritis GERD (gastroesophageal reflux disease) Surgical History History of bilateral hip replacements History of left hip replacement 02/08/18: SAB x1 at L3-L4 at [facility] History of hysteroscopy D+C Hx of colonoscopy Nausea and vomiting after administration of anesthetic agent Hx of laparoscopy DERMOID CYST REMOVED Hx of hysterectomy BSO Family History Grandmother Diabetes mellitus, type 2 Mother CHF (congestive heart failure), NYHA class I Myocardial infarction Denies family history of Ovarian cancer Breast cancer Lung cancer Colorectal cancer Social History Smoking Status: Never smoker Second Hand Exposure: No; Do You Dip or Chew Tobacco: No; Hx Alcohol Use: No Hx Substance Use: No Preferred Language: [place] Communication Ability: Impaired Communication Ability Comment: mild cognitive impairment Visual Impairment: Limited Hearing Ability: Normal Analytics Specialist Required: No Beliefs That Will Affect Care: None marital status: Current Living Situation: Personal Care Facility current occupational status: retired Feels Safe at Home: Declines to Answer Childhood Exposure to Second-Hand Smoke: Yes (father cigars) Diet: regular caffeine: Yes Dental Care, Regularly: Yes Physical Activity Frequency: Does not Exercise Seatbelt Use: always Sunscreen Use: Yes Do you think of yourself as: straight/heterosexual Assistive Devices: Walker Allergies Allergies Allergy/AdvReac Type Severity Reaction Status Date / Time No Known Allergies Allergy Verified 09/25/22 14:44 Home Meds Home Medications Medication Instructions Recorded Confirmed [place]/Co 10 1 tab PO QAM 01/03/18 09/25/22 cyanocobalamin (vitamin B-12) 1,000 mcg PO QAM 01/03/18 09/25/22 1,000 mcg tablet (Vitamin B-12) lisinopril 10 1 tab PO QAM 01/03/18 09/25/22 mg-hydrochlorothiazide 12.5 mg tablet multivitamin 1 tab PO QAM 01/03/18 09/25/22 alpha lipoic acid 300 mg capsule 300 mg PO BID 09/13/21 09/25/22 donepezil 10 mg tablet 10 mg PO DAILY 09/13/21 09/25/22 propylene glycol 0.6 % eye drops 1 drp ophthalmic (eye) DAILY PRN 09/13/21 09/25/22 (Systane Balance) zinc 50 mg tablet 50 mg PO DAILY 09/13/21 09/25/22 Previous Rx's Medication Instructions Recorded aspirin 81 mg tablet,delayed 81 mg PO BID #84 tabs 09/28/18 release (Ecotrin Low Strength) ascorbic acid (vitamin C) 250 mg 250 mg PO DAILY #30 tabs 02/21/22 chewable tablet fluticasone propionate 50 2 spray intranasal DAILY #16 grams 04/13/22 mcg/actuation nasal spray,suspension (Flonase Allergy Relief) memantine 5 mg tablet 5 mg PO BID #60 tabs 08/08/22 acetaminophen 325 mg tablet 650 mg (2 x 325 mg) PO Q6H PRN 10/17/22 (Tylenol) pain #30 tabs Results & Data (ED) Vital Signs Vital Signs - 24 hr 11/04/23 15:45 11/04/23 15:48 11/04/23 16:00 Temperature 37.5 C Temperature Source Rectal Pulse Rate 114 H 106 H 98 H Pulse Rate [Apical] Pulse Rate from SpO2 Sensor Pulse Rhythm [Apical] Respiratory Rate 20 18 23 Respiratory Effort / Characteristics Non-Labored Respiratory Depth Normal Blood Pressure 105/76 Blood Pressure [Right Arm] Blood Pressure Mean 85 Blood Pressure Mean [Right Arm] Pulse Oximetry 99 Oxygen Delivery Method Room Air Sepsis Recent Fever Within 48 Hours Yes Sepsis New/Unexplained Change in Mental Status No Sepsis Action Taken by Nursing No Action Required 11/04/23 16:01 11/04/23 16:02 11/04/23 16:02 Temperature Temperature Source Pulse Rate 112 H Pulse Rate [Apical] Pulse Rate from SpO2 Sensor Pulse Rhythm [Apical] Respiratory Rate Respiratory Effort / Characteristics Respiratory Depth Blood Pressure 110/81 110/81 Blood Pressure [Right Arm] Blood Pressure Mean 93 93 Blood Pressure Mean [Right Arm] Pulse Oximetry Oxygen Delivery Method Sepsis Recent Fever Within 48 Hours Sepsis New/Unexplained Change in Mental Status Sepsis Action Taken by Nursing 11/04/23 16:03 11/04/23 16:08 11/04/23 16:30 Temperature Temperature Source Pulse Rate Pulse Rate [Apical] Pulse Rate from SpO2 Sensor Pulse Rhythm [Apical] Respiratory Rate 20 Respiratory Effort / Characteristics Respiratory Depth Blood Pressure 124/78 Blood Pressure [Right Arm] Blood Pressure Mean 103 Blood Pressure Mean [Right Arm] Pulse Oximetry Oxygen Delivery Method Room Air Sepsis Recent Fever Within 48 Hours Sepsis New/Unexplained Change in Mental Status Sepsis Action Taken by Nursing 11/04/23 16:39 11/04/23 17:00 11/04/23 18:25 Temperature 36.8 C Temperature Source Oral Pulse Rate 79 Pulse Rate [Apical] 86 Pulse Rate from SpO2 Sensor 95 H 81 Pulse Rhythm [Apical] Regular Respiratory Rate 25 H 25 H 16 Respiratory Effort / Characteristics Respiratory Depth Normal Blood Pressure Blood Pressure [Right Arm] 105/76 Blood Pressure Mean Blood Pressure Mean [Right Arm] 85 Pulse Oximetry 97 97 95 Oxygen Delivery Method Room Air Sepsis Recent Fever Within 48 Hours Sepsis New/Unexplained Change in Mental Status Sepsis Action Taken by Nursing 11/04/23 18:26 11/04/23 20:00 Temperature Temperature Source Pulse Rate Pulse Rate [Apical] 76 Pulse Rate from SpO2 Sensor Pulse Rhythm [Apical] Respiratory Rate 17 Respiratory Effort / Characteristics Non-Labored Respiratory Depth Blood Pressure Blood Pressure [Right Arm] 138/78 Blood Pressure Mean Blood Pressure Mean [Right Arm] 98 Pulse Oximetry 98 97 Oxygen Delivery Method Room Air Room Air Sepsis Recent Fever Within 48 Hours Sepsis New/Unexplained Change in Mental Status Sepsis Action Taken by Nursing Laboratory Data Attestation: I reviewed the patient's lab results. 11/04/23 15:45 11/04/23 15:45 Lab Results 11/04/23 11/04/23 11/04/23 Range/Units 15:45 15:55 16:28 WBC 7.74 (4.8-10.8) K/ul RBC 4.06 L (4.20-5.40) M/uL Hgb 12.9 (12.0-16.0) g/dl Hct 36.6 L (37.0-47.0) % MCV 90.1 (80.0-100.0) fL MCH 31.8 (25.0-34.0) pg MCHC 35.2 (32.0-36.0) g/dL RDW Std Deviation 42.4 (36.4-46.3) fL RDW Coeff of Heather 12.8 (11.5-14.5) % Plt Count 242 (130-400) K/uL MPV 10.8 (9.4-12.4) fL Immature Gran % (Auto) 0.3 % Neut % (Auto) 76.4 % Lymph % (Auto) 14.9 % [place] % (Auto) 7.0 % Eos % (Auto) 0.6 % Baso % (Auto) 0.8 % Neut # (Auto) 5.92 (1.40-6.50) K/uL Lymph # (Auto) 1.15 L (1.20-3.40) K/uL [place] # (Auto) 0.54 (0.11-0.59) K/uL Eos # (Auto) 0.05 (0.00-0.50) K/uL Baso # (Auto) 0.06 (0.00-0.20) K/uL Immature Gran # (Auto) 0.02 (0.01-0.20) K/uL PT 10.9 (9.0-12.0) Seconds INR 1.0 (0.9-1.1) VBG pH 7.46 H (7.36-7.41) VBG pCO2 36 L (38-50) mmHg VBG pO2 76 mmHg VBG HCO3 26 mmol/L VBG O2 Saturation 97.2 % VBG Base Excess 2.0 mEq/L Sodium 137 (136-145) mmol/L Potassium 3.6 (3.5-5.1) mmol/L Chloride 104 (98-107) mmol/L Carbon Dioxide 26 (21-32) mmol/L Anion Gap 7 (3-11) BUN 19 (6-23) mg/dl Creatinine 0.71 (0.6-1.2) mg/dl Est Cr Clr Drug Dosing 68.0 ml/min Est GFR ( Amer) 92.6 ml/min Est GFR (Non-Af Amer) 79.9 ml/min BUN/Creatinine Ratio 26.8 H (10-20) Glucose 123 H (70-99(Fasting)) mg/dl Calcium 9.2 (8.6-10.3) mg/dl Phosphorus 3.4 (2.5-4.9) mg/dl Magnesium 1.7 (1.7-2.4) mg/dl Total Bilirubin 0.5 (0.2-1.0) mg/dl AST 28 (13-39) U/L ALT 16 (7-52) U/L Alkaline Phosphatase 59 (34-104) U/L Troponin I High Sens 9.9 (0-14) pg/ml Total Protein 6.3 (6.0-8.3) gm/dl Albumin 3.8 (3.4-5.0) gm/dl Globulin 2.5 (2.5-4.0) gm/dl Albumin/Globulin Ratio 1.5 (0.9-2) Lipase 15 (11-82) U/L TSH 1.532 (0.300-4.500) uIu/ml Urine Color Yellow Urine Appearance Cloudy A (Clear) Urine pH 7.0 (4.5-7.5) Ur Specific [place] 1.020 (1.000-1.030) Urine Protein Negative (Negative) Urine Glucose (UA) Negative (Negative) Urine Ketones 1+ H (Negative) Urine Blood Negative (Negative) Urine Nitrite Negative (Negative) Urine Bilirubin Negative (Negative) Urine Urobilinogen Negative (Negative) Ur Leukocyte Esterase Negative (Negative) Urine WBC (Auto) 0-5 (0-5) /hpf Urine RBC (Auto) 0-2 (0-2) /hpf U Hyaline Cast (Auto) 0-2 (0-2) /lpf U Epithel Cells (Auto) 0-2 (0-2) /hpf Urine Bacteria (Auto) None Seen (None Seen) SARS-CoV-2 (PCR) (Negative) Influenza Type A (PCR) (Neg) Influenza Type B (PCR) (Neg) RSV (RT-PCR) (Neg) 11/04/23 Range/Units 19:45 WBC (4.8-10.8) K/ul RBC (4.20-5.40) M/uL Hgb (12.0-16.0) g/dl Hct (37.0-47.0) % MCV (80.0-100.0) fL MCH (25.0-34.0) pg MCHC (32.0-36.0) g/dL RDW Std Deviation (36.4-46.3) fL RDW Coeff of Heather (11.5-14.5) % Plt Count (130-400) K/uL MPV (9.4-12.4) fL Immature Gran % (Auto) % Neut % (Auto) % Lymph % (Auto) % [place] % (Auto) % Eos % (Auto) % Baso % (Auto) % Neut # (Auto) (1.40-6.50) K/uL Lymph # (Auto) (1.20-3.40) K/uL [place] # (Auto) (0.11-0.59) K/uL Eos # (Auto) (0.00-0.50) K/uL Baso # (Auto) (0.00-0.20) K/uL Immature Gran # (Auto) (0.01-0.20) K/uL PT (9.0-12.0) Seconds INR (0.9-1.1) VBG pH (7.36-7.41) VBG pCO2 (38-50) mmHg VBG pO2 mmHg VBG HCO3 mmol/L VBG O2 Saturation % VBG Base Excess mEq/L Sodium (136-145) mmol/L Potassium (3.5-5.1) mmol/L Chloride (98-107) mmol/L Carbon Dioxide (21-32) mmol/L Anion Gap (3-11) BUN (6-23) mg/dl Creatinine (0.6-1.2) mg/dl Est Cr Clr Drug Dosing ml/min Est GFR ( Amer) ml/min Est GFR (Non-Af Amer) ml/min BUN/Creatinine Ratio (10-20) Glucose (70-99(Fasting)) mg/dl Calcium (8.6-10.3) mg/dl Phosphorus (2.5-4.9) mg/dl Magnesium (1.7-2.4) mg/dl Total Bilirubin (0.2-1.0) mg/dl AST (13-39) U/L ALT (7-52) U/L Alkaline Phosphatase (34-104) U/L Troponin I High Sens (0-14) pg/ml Total Protein (6.0-8.3) gm/dl Albumin (3.4-5.0) gm/dl Globulin (2.5-4.0) gm/dl Albumin/Globulin Ratio (0.9-2) Lipase (11-82) U/L TSH (0.300-4.500) uIu/ml Urine Color Urine Appearance (Clear) Urine pH (4.5-7.5) Ur Specific [place] (1.000-1.030) Urine Protein (Negative) Urine Glucose (UA) (Negative) Urine Ketones (Negative) Urine Blood (Negative) Urine Nitrite (Negative) Urine Bilirubin (Negative) Urine Urobilinogen (Negative) Ur Leukocyte Esterase (Negative) Urine WBC (Auto) (0-5) /hpf Urine RBC (Auto) (0-2) /hpf U Hyaline Cast (Auto) (0-2) /lpf U Epithel Cells (Auto) (0-2) /hpf Urine Bacteria (Auto) (None Seen) SARS-CoV-2 (PCR) NEGATIVE (Negative) Influenza Type A (PCR) Negative (Neg) Influenza Type B (PCR) Negative (Neg) RSV (RT-PCR) Negative (Neg) Administered Medications Aspirin (Aspirin 81 Mg Ectab) 81 mg PO BID JUAN M Stop: 12/04/23 22:56 Last Admin: 11/04/23 23:23 Dose: Not Given Documented By: KIARA Memantine (Memantine Hcl 5 Mg Tab) 5 mg PO BID JUAN M Stop: 12/04/23 22:56 Last Admin: 11/04/23 23:23 Dose: Not Given Documented By: KIARA Discontinued Medications Sodium Chloride (Nss) 500 mls @ 999 mls/hr IV .Q31M ONE Stop: 11/04/23 16:43 Last Infusion: 11/04/23 16:38 Dose: Infused Documented By: Admin: 11/04/23 16:23 Dose: 999 mls/hr Documented By: ABIMAEL Acetaminophen (Ofirmev) 1,000 mg in 100 mls @ 400 mls/hr IV NOW STA Stop: 11/04/23 17:20 Last Infusion: 11/04/23 17:47 Dose: Infused Documented By: Admin: 11/04/23 17:13 Dose: 400 mls/hr Documented By: ABIMAEL Ioversol (Optiray 320 100ml) 93 ml IV ONCE ONE Stop: 11/04/23 17:58 Last Admin: 11/04/23 17:58 Dose: 93 ml Documented By: GEP Imaging Data Radiologist's Impression: Chest X-Ray 11/04/23 16:09 XR chest 1V portable HISTORY: 83 years-old Female weak acute weakness COMPARISON: 10/17/2022 TECHNIQUE: AP view of the chest FINDINGS: Cardiac silhouette is enlarged. Mild chronic interstitial coarsening. No pneumothorax, pleural effusion or airspace consolidation. Hiatal hernia. Bones appear intact. IMPRESSION: Cardiomegaly without acute process. ACT 112: Negative or not required by law. The above report was generated using voice recognition software. It may contain grammatical, syntax or spelling errors. Electronically signed by: Wale Saini M.D. 11/04/2023 4:55 PM Abdomen/Pelvis CT 11/04/23 17:[address] WITH IV CONTRAST CT DOSE: 2182.95 mGy.cm HISTORY: Acute transabdominal pain with fever ams, abd pain, BLE weakness TECHNIQUE: Multiaxial CT images of the abdomen and pelvis were performed following the IV administration of 93 cc of Optiray, A dose lowering technique was utilized adhering to the principles of ALARA. COMPARISON STUDY: None. FINDINGS: Limited exam secondary to upper extremity positioning. Cardiomegaly. Trace pleural effusions with bibasilar atelectasis. No free air. Unremarkable spleen, pancreas and adrenal glands. Cholelithiasis. Unremarkable liver. Patency of the hepatic and portal veins. Indeterminate exophytic mixed attenuating 1.2 cm lesion of the posterior aspect of the inferior pole left kidney with possible enhancing mural nodule. There are a few renal cysts noted bilaterally. Heterogeneous enhancement of the superior pole left kidney with probable parenchyma versus less likely lesion measuring 2.6 cm on image 63 series 7. 4 mm nonobstructing calculus of the superior pole left kidney. 3 mm nonobstructing calculus of the inferior pole right kidney. Distal ureters are not well seen secondary to streak artifact from hip arthroplasties. Decompressed bladder with wall thickening. Prostatomegaly. Partially imaged catheter projects over the medial radial folds. Atherosclerosis of the aorta. Moderate-sized hiatal hernia with distal esophageal wall thickening. Colonic diverticulosis. Moderate colonic fecal retention. The visualized appendix is unremarkable. Tiny fat filled umbilical hernia. Generalized body wall edema. IMPRESSION: 1. No bowel obstruction or bowel wall thickening. 2. Colonic diverticulosis. 3. Prostatomegaly with chronic bladder outlet obstruction. 4. Trace pleural effusions with body wall edema. 5. Cholelithiasis. 6. Moderate-sized hiatal hernia. 7. Nonobstructing bilateral nephrolithiasis. 8. Indeterminate exophytic 1.2 cm lesion of the inferior pole left kidney with equivocal lesion of the superior pole. Correlation with nonemergent follow-up renal ultrasound recommended. ACT 112: Negative or not required by law. The above report was generated using voice recognition software. It may contain grammatical, syntax or spelling errors. Electronically signed by: Wale Saini M.D. 11/04/2023 6:[address] 11/04/23 17:04 CT head/brain wo con CLINICAL HISTORY: 83 years-old Female with ams. Acutely altered mental status TECHNIQUE: Multiple axial CT images of the head were obtained without contrast. A dose lowering technique was utilized adhering to the principles of ALARA. COMPARISON: 10/17/2022 FINDINGS: No acute intracranial hemorrhage, midline shift, intracranial mass, acute territorial ischemia or abnormal extra-axial collection. Unchanged ventriculomegaly, likely an ex vacuo basis. Chronic microvascular ischemic disease. The calvarium is intact. Bilateral lens repair. The paranasal sinuses, mastoid air cells, and middle ear cavities are clear. IMPRESSION: No acute intracranial abnormality. Stable appearance of the brain compared to the 10/17/2022 exam. ACT 112: Negative or not required by law. The above report was generated using voice recognition software. It may contain grammatical, syntax or spelling errors. Electronically signed by: Wale Saini M.D. 11/04/2023 6:[address] 11/04/23 17:06 CT cervical spine wo con CLINICAL HISTORY: 83 years-old Female with BLE weakness. Acute neck pain with upper extremity weakness COMPARISON: Head CT of same day TECHNIQUE: Multiple axial CT images of the cervical spine were obtained without contrast. A dose lowering technique was utilized adhering to the principles of ALARA. FINDINGS: Multilevel changes with severe disc space narrowing and moderate spondylitic spurring at C4-C5 and C5-C6. No acute cervical spine fracture or subluxation identified. Moderate to severe multilevel facet arthrosis. Multilevel neural foraminal narrowing, suboptimally evaluated by CT. Multinodular thyroid goiter. No pneumothorax. No prevertebral edema. The visualized lung apices appear clear. IMPRESSION: No acute fracture or subluxation of the cervical spine identified. ACT 112: Negative or not required by law. The above report was generated using voice recognition software. It may contain grammatical, syntax or spelling errors. Electronically signed by: Wale Saini M.D. 11/04/2023 6:39 PM Discharge Plan Visit Data Chief Complaint: Weakness ED Provider: Deon Bhatti Discharge Problem: Advancing dementia, Failure to thrive in adult, Twitching Patient Disposition: Admitted As Inpatient Discharge Instructions Interventions: ED Discharge Assessment Last Done: 11/04/23 22:26
[2023-11-04] MEDS: SODIUM CHLORIDE 0.9% 500 ML IV ONE (16:23)
[2023-11-04 16:33] LABS: Basophils # (auto) 0.06 K/uL (0.00-0.20); Basophils % (auto) 0.8 %; Eosinophils # (auto) 0.05 K/uL (0.00-0.50); Eosinophils % (auto) 0.6 %; Hematocrit (blood only) 36.6 % (37.0-47.0); Hemoglobin 12.9 g/dl (12.0-16.0); Immature Granulocytes # (auto) 0.02 K/uL (0.01-0.20); Immature Granulocytes % (auto) 0.3 %; Lymphocytes # (auto) 1.15 K/uL (1.20-3.40); Lymphocytes % (auto) 14.9 %; Mean Corpuscular Hemoglobin 31.8 pg (25.0-34.0); Mean Corpuscular Hgb Conc 35.2 g/dL (32.0-36.0); Mean Corpuscular Volume 90.1 fL (80.0-100.0); Mean Platelet Volume 10.8 fL (9.4-12.4); Monocytes # (auto) 0.54 K/uL (0.11-0.59); Neutrophils # (auto) 5.92 K/uL (1.40-6.50); Neutrophils % (auto) 76.4 %; Platelet Count 242 K/uL (130-400); RDW Coefficient of Variation 12.8 % (11.5-14.5); RDW Standard Deviation 42.4 fL (36.4-46.3); Red Blood Count 4.06 M/uL (4.20-5.40); White Blood Count 7.74 K/ul (4.8-10.8)
[2023-11-04 16:36] LABS: HCO3 VBG 26 mmol/L; Oxygen Saturation VBG 97.2 %; PCO2 VBG 36 mmHg (38-50); PO2 VBG 76 mmHg; pH VBG 7.46 (7.36-7.41)
[2023-11-04 16:37] LABS: Appearance Urine Cloudy (Clear); Bacteria Urine Automated None Seen (None Seen); Bilirubin Urine Negative (Negative); Blood Urine Negative (Negative); Cast Urine Automated 0-2 /lpf (0-2); Color Urine Yellow; Epithelial Cell Urine Auto 0-2 /hpf (0-2); Glucose Urine UA Negative (Negative); Ketones Urine 1+ (Negative); Leukocyte Esterase Urine Negative (Negative); Nitrite Urine Negative (Negative); Protein Urine Negative (Negative); RBC Urine Automated 0-2 /hpf (0-2); Urobilinogen Urine Negative (Negative); WBC Urine Automated 0-5 /hpf (0-5)
[2023-11-04 16:44] LABS: Albumin Globulin Ratio 1.5 (0.9-2); Albumin Level 3.8 gm/dl (3.4-5.0); BUN Creatinine Ratio 26.8 (10-20); Bilirubin,Total 0.5 mg/dl (0.2-1.0); Calcium 9.2 mg/dl (8.6-10.3); Est GFR (African American) 92.6 ml/min; Est GFR (Non-African American) 79.9 ml/min; Globulin 2.5 gm/dl (2.5-4.0); Magnesium 1.7 mg/dl (1.7-2.4); Phosphorus 3.4 mg/dl (2.5-4.9); Potassium 3.6 mmol/L (3.5-5.1); Total Protein 6.3 gm/dl (6.0-8.3)
[2023-11-04 16:49] LABS: Troponin I High Sensitivity 9.9 pg/ml (0-14)
[2023-11-04 16:53] LABS: Prothrombin Time 10.9 Seconds (9.0-12.0)
--- NOTE | 2023-11-04 16:57 | XRay Report ---
XR chest 1V portable HISTORY: 83 years-old Female weak acute weakness COMPARISON: 10/17/2022 TECHNIQUE: AP view of the chest FINDINGS: Cardiac silhouette is enlarged. Mild chronic interstitial coarsening. No pneumothorax, pleural effusi on or airspace consolidation. Hiatal hernia. Bones appear intact. IMPRESSION: Cardiomegaly without acute process. ACT 112: Negative or not required by law. The above report was generated using voice recognition software. It may contain grammatical, syntax o r spelling errors. Electronically signed by: Wale Saini M.D. 11/04/2023 4:55 PM
[2023-11-04 16:58] LABS: Thyroid Stimulating Hormone 1.532 uIu/ml (0.300-4.500)
[2023-11-04] MEDS: ACETAMINOPHEN 1,000 MG/100 ML VIAL IV STA (17:13)
[2023-11-04] MEDS: OPTIRAY 320 100ml IV ONE (17:58)
--- NOTE | 2023-11-04 18:36 | CT Scan Report ---
CT head/brain wo con CLINICAL HISTORY: 83 years-old Female with ams. Acutely altered mental status TECHNIQUE: Multiple axial CT images of the head were obtained without contrast. A dose lowering tech nique was utilized adhering to the principles of ALARA. COMPARISON: 10/17/2022 FINDINGS: No acute intracranial hemorrhage, midline shift, intracranial mass, acute territorial ischemia or abn ormal extra-axial collection. Unchanged ventriculomegaly, likely an ex vacuo basis. Chronic microvasc ular ischemic disease. The calvarium is intact. Bilateral lens repair. The paranasal sinuses, mastoid air cells, and middle ear cavities are clear. IMPRESSION: No acute intracranial abnormality. Stable appearance of the brain compared to the 023 exam. ACT 112: Negative or not required by law. The above report was generated using voice recognition software. It may contain grammatical, syntax o r spelling errors. Electronically signed by: Wale Saini M.D. 11/04/2023 6:35 PM
--- NOTE | 2023-11-04 18:42 | CT Scan Report ---
CT cervical spine wo con CLINICAL HISTORY: 83 years-old Female with BLE weakness. Acute neck pain with upper extremity weakne ss COMPARISON: Head CT of same day TECHNIQUE: Multiple axial CT images of the cervical spine were obtained without contrast. A dose low ering technique was utilized adhering to the principles of ALARA. FINDINGS: Multilevel changes with severe disc space narrowing and moderate spondylitic spurring at C4 -C5 and C5-C6. No acute cervical spine fracture or subluxation identified. Moderate to severe multile monika facet arthrosis. Multilevel neural foraminal narrowing, suboptimally evaluated by CT. Multinodular thyroid goiter. No pneumothorax. No prevertebral edema. The visualized lung apices appe ar clear. IMPRESSION: No acute fracture or subluxation of the cervical spine identified. ACT 112: Negative or not required by law. The above report was generated using voice recognition software. It may contain grammatical, syntax o r spelling errors. Electronically signed by: Wale Saini M.D. 11/04/2023 6:39 PM
--- NOTE | 2023-11-04 18:47 | CT Scan Report ---
ABDOMEN AND PELVIS CT WITH IV CONTRAST CT DOSE: 2182.95 mGy.cm HISTORY: Acute transabdominal pain with fever ams, abd pain, BLE weakness TECHNIQUE: Multiaxial CT images of the abdomen and pelvis were performed following the IV administrat ion of 93 cc of Optiray, A dose lowering technique was utilized adhering to the principles of ALARA. COMPARISON STUDY: None. FINDINGS: Limited exam secondary to upper extremity positioning. Cardiomegaly. Trace pleural effusion s with bibasilar atelectasis. No free air. Unremarkable spleen, pancreas and adrenal glands. Cholelit hiasis. Unremarkable liver. Patency of the hepatic and portal veins. Indeterminate exophytic mixed attenuating 1.2 cm lesion of the posterior aspect of the inferior pole left kidney with possible enhancing mural nodule. There are a few renal cysts noted bilaterally. Hete rogeneous enhancement of the superior pole left kidney with probable parenchyma versus less likely le amie measuring 2.6 cm on image 63 series 7. 4 mm nonobstructing calculus of the superior pole left ki dney. 3 mm nonobstructing calculus of the inferior pole right kidney. Distal ureters are not well see n secondary to streak artifact from hip arthroplasties. Decompressed bladder with wall thickening. Pr ostatomegaly. Partially imaged catheter projects over the medial radial folds. Atherosclerosis of the aorta. Moderate-sized hiatal hernia with distal esophageal wall thickening. Colonic diverticulosis. Moderate colonic fecal retention. The visualized appendix is unremarkable. Tiny fat filled umbilical hernia. Generalized body wall edema. IMPRESSION: 1. No bowel obstruction or bowel wall thickening. 2. Colonic diverticulosis. 3. Prostatomegaly with chronic bladder outlet obstruction. 4. Trace pleural effusions with body wall edema. 5. Cholelithiasis. 6. Moderate-sized hiatal hernia. 7. Nonobstructing bilateral nephrolithiasis. 8. Indeterminate exophytic 1.2 cm lesion of the inferior pole left kidney with equivocal lesion of th e superior pole. Correlation with nonemergent follow-up renal ultrasound recommended. ACT 112: Negative or not required by law. The above report was generated using voice recognition software. It may contain grammatical, syntax o r spelling errors. Electronically signed by: Wale Saini M.D. 11/04/2023 6:45 PM
--- NOTE | 2023-11-04 19:34 | History & Physical Report ---
Date of Service November 04, 2023 Assessment & Plan (1) Failure to thrive in adult: Plan: Admit to med/surge Currently stable but with limited interaction and functional ability Patient has been had evaluated in the ED today due to concerns for ongoing clinical decline and need for admission to facility with a higher level of care Patient has known severe Alzheimer's dementia which appears to be progressing causing bilateral lower extremity weakness and possible myoclonus No metabolic abnormalities to suggest ongoing decline over the past [address] of head and brain without contrast, CT of the cervical spine, chest x-ray, and CT abdomen pelvis with contrast were unremarkable Suspect his symptoms and clinical status are due to her ongoing Alzheimer's dementia Fall/aspiration precautions and bed alarm have been ordered PT/OT consults in place patient will need higher level of care on discharge Bilateral BRYANT stockings for DVT prophylaxis Will obtain COVID-19, influenza, and RSV screening for further evaluation N.p.o. overnight with speech consult tomorrow AM CBC and BMP (2) Advancing dementia: Plan: See failure to thrive Continue donepezil and memantine (3) Twitching: Plan: CT of the head and brain without contrast was negative for acute findings Due to symptoms progressing over the past 3 weeks if this were due to CVA it should show up on CT of the head and brain without contrast at this time At this time it does not appear to be of benefit to obtain MRI of the brain as symptoms are most likely due to progressive dementia (4) Hypertension: Plan: Currently stable Can continue home lisinoprilhydrochlorothiazide tomorrow if needed and if she passes her speech evaluation Plan Patient was discussed with Dr. Stack the time of the admission History of Present Illness Chief Complaint: Fever, increased confusion, extremity twitching Primary Care Provider: [facility] Pat is an 83-year-old female with a past medical history significant for Alzheimer's dementia, aortic stenosis, hypertension, hyperlipidemia, and GERD who presented to the [facility] ED via EMS from [facility] with complaints of fever, increased confusion, and extremity twitching over the past 24 hours. She was noted to be tachycardic on arrival at 114, tachypneic at 25, but otherwise stable. Labs including CBC, CMP, TSH, and UA were unremarkable. Chest x-ray was read as cardiomegaly without acute process. CT of the head and brain without contrast and CT of the cervical spine without contrast were read as negative for acute findings. CT of the abdomen pelvis with IV contrast noted urinary bladder wall thickening is suboptimally visualized secondary to streak artifact from bilateral hip arthroplasties. Intermediate exophytic 1.2 cm lesion of the inferior pole left kidney with equivocal lesion of the superior pole. Correlation with nonemergent follow-up renal ultrasound recommended. Prior to admission the patient was given a dose of Tylenol and 500 mL normal saline. The ED explains that the patient is currently currently requiring more care than the [facility] can provide at this time. Patient was lying in bed in no acute distress at the time of exam with her [facility] bedside, history was obtained from the patient's due to her baseline mental status. Her explains that the patient has had a ongoing clinical mental decline since her original diagnosis of Alzheimer's approximately 6 years ago. He explains that she will recognize them but does not remember his name. Approximately 3 weeks ago she became progressively weak in the bilateral lower extremities to the point that staff needed to use a wheelchair to help safely transport her. She has been eating less frequently and lower quantities. Over the past 3 days she mainly keeps her eyes closed and has intermittent jerking/twitching. He explains that he feels like she needs more care than her current facility can provide. He confirms that she is a DNR/DNI. Please refer to Dr. Stack's attestation for any changes to the treatment plan Allergies Allergy/AdvReac Type Severity Reaction Status Date / Time No Known Allergies Allergy Verified 09/25/22 14:44 Home Medications Medication Instructions Recorded Confirmed Type [place]/Co 10 1 tab PO QAM 01/03/18 09/25/22 History cyanocobalamin (vitamin B-12) 1,000 mcg PO QAM 01/03/18 09/25/22 History 1,000 mcg tablet (Vitamin B-12) lisinopril 10 1 tab PO QAM 01/03/18 09/25/22 History mg-hydrochlorothiazide 12.5 mg tablet multivitamin 1 tab PO QAM 01/03/18 09/25/22 History aspirin 81 mg tablet,delayed 81 mg PO BID #84 tabs 09/28/18 09/25/22 Rx release (Ecotrin Low Strength) alpha lipoic acid 300 mg capsule 300 mg PO BID 09/13/21 09/25/22 History donepezil 10 mg tablet 10 mg PO DAILY 09/13/21 09/25/22 History propylene glycol 0.6 % eye drops 1 drp ophthalmic (eye) DAILY PRN 09/13/21 09/25/22 History (Systane Balance) zinc 50 mg tablet 50 mg PO DAILY 09/13/21 09/25/22 History ascorbic acid (vitamin C) 250 mg 250 mg PO DAILY #30 tabs 02/21/22 09/25/22 Rx chewable tablet fluticasone propionate 50 2 spray intranasal DAILY #16 grams 04/13/22 09/25/22 Rx mcg/actuation nasal spray,suspension (Flonase Allergy Relief) memantine 5 mg tablet 5 mg PO BID #60 tabs 08/08/22 09/25/22 Rx acetaminophen 325 mg tablet 650 mg (2 x 325 mg) PO Q6H PRN 10/17/22 Rx (Tylenol) pain #30 tabs Past Med/Surg History Problem List (Updated 11/05/23 @ 00:57 by Deon Bhatti MD) Twitching (Acute) Failure to thrive in adult (Acute) Vulvitis Osteoarthritis of both knees Impaired glucose tolerance Osteoporosis Hypertension Advancing dementia (Acute) Aortic stenosis Ovarian failure, postablative Mild cognitive impairment Hyperlipidemia Osteoarthritis of right hip Osteoarthritis of left hip Medical History Abdominal mass, left lower quadrant Obesity Osteoarthritis GERD (gastroesophageal reflux disease) Surgical History History of bilateral hip replacements History of left hip replacement 02/08/18: SAB x1 at L3-L4 at [facility] History of hysteroscopy D+C Hx of colonoscopy Nausea and vomiting after administration of anesthetic agent Hx of laparoscopy DERMOID CYST REMOVED Hx of hysterectomy BSO Family History Grandmother Diabetes mellitus, type 2 Mother CHF (congestive heart failure), NYHA class I Myocardial infarction Denies family history of Ovarian cancer Breast cancer Lung cancer Colorectal cancer Social History Smoking Status: Never smoker Second Hand Exposure: No; Do You Dip or Chew Tobacco: No; Hx Alcohol Use: No Hx Substance Use: No Preferred Language: [place] Citizen Communication Ability: Impaired Communication Ability Comment: mild cognitive impairment Visual Impairment: Limited Hearing Ability: Normal Police Service Technician Required: No Beliefs That Will Affect Care: None marital status: Current Living Situation: Personal Care Facility current occupational status: retired Feels Safe at Home: Declines to Answer Childhood Exposure to Second-Hand Smoke: Yes (father cigars) Diet: regular caffeine: Yes Dental Care, Regularly: Yes Physical Activity Frequency: Does not Exercise Seatbelt Use: always Sunscreen Use: Yes Do you think of yourself as: straight/heterosexual Assistive Devices: Walker Physical Exam Physical Exam: Physical Exam: General: In no acute distress, stated age, malnourished, non-toxic appearing HEENT: Normocephalic, atraumatic, patient refuses to open eye and becomes severely agitated when trying to manually open them, moist mucus membranes, trachea midline, no thyromegaly Chest/Pulm: No respiratory distress, symmetrical chest expansion, clear breath sounds throughout Cardiac: RRR, no murmurs noted Abdomen: Negative for ascites and bruising, normoactive bowel sounds, soft, non-tender to palpation throughout Musculoskeletal: Patient with upper extremities crossed and rigid, voluntarily moves the BL LE's but will not follow commands Extremities: Radial, dorsalis pedis, and posterior tibial pulses are intact and symmetrical, no edema noted in the BL LE's Skin: Warm, dry, no rashes , lesions, or scars noted Neuro: Alert will respond to name but does not interact otherwise, will not cooperate with CN testing or strength testing, intermittent twitching noted in the BL upper and lower extremities Psych: No acute distress when at rest but becomes severely agitated if you try and interact with her Results & Data Results & Data Vital Signs (Past 12 Hours) Vital Signs Temp Pulse Pulse Resp BP BP Pulse Ox 11/04/23 18:26 98 11/04/23 18:25 36.8 C 86 16 105/76 95 11/04/23 17:00 79 25 H 97 11/04/23 16:39 25 H 97 11/04/23 16:30 124/78 11/04/23 16:08 11/04/23 16:03 20 11/04/23 16:02 110/81 11/04/23 16:02 110/81 11/04/23 16:01 112 H 11/04/23 16:00 98 H 23 11/04/23 15:48 106 H 18 11/04/23 15:45 37.5 C 114 H 20 105/76 99 O2 Del Method 11/04/23 18:26 Room Air 11/04/23 18:25 Room Air 11/04/23 17:00 11/04/23 16:39 11/04/23 16:30 11/04/23 16:08 Room Air 11/04/23 16:03 11/04/23 16:02 11/04/23 16:02 11/04/23 16:01 11/04/23 16:00 11/04/23 15:48 11/04/23 15:45 Room Air Laboratory Results Abnormal lab results 11/04/23 11/04/23 11/04/23 Range/Units 15:45 15:55 16:28 RBC 4.06 L (4.20-5.40) M/uL Hct 36.6 L (37.0-47.0) % Lymph # (Auto) 1.15 L (1.20-3.40) K/uL VBG pH 7.46 H (7.36-7.41) VBG pCO2 36 L (38-50) mmHg BUN/Creatinine Ratio 26.8 H (10-20) Glucose 123 H (70-99(Fasting)) mg/dl Urine Appearance Cloudy A (Clear) Urine Ketones 1+ H (Negative) Diagnostic Findings Chest X-Ray 11/04/23 16:09 XR chest 1V portable HISTORY: 83 years-old Female weak acute weakness COMPARISON: 10/17/2022 TECHNIQUE: AP view of the chest FINDINGS: Cardiac silhouette is enlarged. Mild chronic interstitial coarsening. No pneumothorax, pleural effusion or airspace consolidation. Hiatal hernia. Bones appear intact. IMPRESSION: Cardiomegaly without acute process. ACT 112: Negative or not required by law. The above report was generated using voice recognition software. It may contain grammatical, syntax or spelling errors. Electronically signed by: Wale Saini M.D. 11/04/2023 4:55 PM Abdomen/Pelvis CT 11/04/23 17:[address] WITH IV CONTRAST CT DOSE: 2182.95 mGy.cm HISTORY: Acute transabdominal pain with fever ams, abd pain, BLE weakness TECHNIQUE: Multiaxial CT images of the abdomen and pelvis were performed following the IV administration of 93 cc of Optiray, A dose lowering technique was utilized adhering to the principles of ALARA. COMPARISON STUDY: None. FINDINGS: Limited exam secondary to upper extremity positioning. Cardiomegaly. Trace pleural effusions with bibasilar atelectasis. No free air. Unremarkable spleen, pancreas and adrenal glands. Cholelithiasis. Unremarkable liver. Patency of the hepatic and portal veins. Indeterminate exophytic mixed attenuating 1.2 cm lesion of the posterior aspect of the inferior pole left kidney with possible enhancing mural nodule. There are a few renal cysts noted bilaterally. Heterogeneous enhancement of the superior pole left kidney with probable parenchyma versus less likely lesion measuring 2.6 cm on image 63 series 7. 4 mm nonobstructing calculus of the superior pole left kidney. 3 mm nonobstructing calculus of the inferior pole right kidney. Distal ureters are not well seen secondary to streak artifact from hip arthroplasties. Decompressed bladder with wall thickening. Prostatomegaly. Partially imaged catheter projects over the medial radial folds. Atherosclerosis of the aorta. Moderate-sized hiatal hernia with distal esophageal wall thickening. Colonic diverticulosis. Moderate colonic fecal retention. The visualized appendix is unremarkable. Tiny fat filled umbilical hernia. Genera lized body wall edema. IMPRESSION: 1. No bowel obstruction or bowel wall thickening. 2. Colonic diverticulosis. 3. Prostatomegaly with chronic bladder outlet obstruction. 4. Trace pleural effusions with body wall edema. 5. Cholelithiasis. 6. Moderate-sized hiatal hernia. 7. Nonobstructing bilateral nephrolithiasis. 8. Indeterminate exophytic 1.2 cm lesion of the inferior pole left kidney with equivocal lesion of the superior pole. Correlation with nonemergent follow-up renal ultrasound recommended. ACT 112: Negative or not required by law. The above report was generated using voice recognition software. It may contain grammatical, syntax or spelling errors. Electronically signed by: Wale Saini M.D. 11/04/2023 6:[address] 11/04/23 17:04 CT head/brain wo con CLINICAL HISTORY: 83 years-old Female with ams. Acutely altered mental status TECHNIQUE: Multiple axial CT images of the head were obtained without contrast. A dose lowering technique was utilized adhering to the principles of ALARA. COMPARISON: 10/17/2022 FINDINGS: No acute intracranial hemorrhage, midline shift, intracranial mass, acute t erritorial ischemia or abnormal extra-axial collection. Unchanged ventriculomegaly, likely an ex vacuo basis. Chronic microvascular ischemic disease. The calvarium is intact. Bilateral lens repair. The paranasal sinuses, mastoid air cells, and middle ear cavities are clear. IMPRESSION: No acute intracranial abnormality. Stable appearance of the brain compared to the 10/17/2022 exam. ACT 112: Negative or not required by law. The above report was generated using voice recognition software. It may contain grammatical, syntax or spelling errors. Electronically signed by: Wale Saini M.D. 11/04/2023 6:[address] 11/04/23 17:06 CT cervical spine wo con CLINICAL HISTORY: 83 years-old Female with BLE weakness. Acute neck pain with upper extremity weakness COMPARISON: Head CT of same day TECHNIQUE: Multiple axial CT images of the cervical spine were obtained without contrast. A dose lowering technique was utilized adhering to the principles of ALARA. FINDINGS: Multilevel changes with severe disc space narrowing and moderate spondylitic spurring at C4-C5 and C5-C6. No acute cervical spine fracture or subluxation identified. Moderate to severe multilevel facet arthrosis. Multilevel neural foraminal narrowing, suboptimally evaluated by CT. Multinodular thyroid goiter. No pneumothorax. No prevertebral edema. The visualized lung apices appear clear. IMPRESSION: No acute fracture or subluxation of the cervical spine identified. ACT 112: Negative or not required by law. The above report was generated using voice recognition software. It may contain grammatical, syntax or spelling errors. Electronically signed by: Wale Saini M.D. 11/04/2023 6:39 PM ECG Additional Comments: Normal sinus rhythm Normal ECG When compared with ECG of 17-OCT-2022 16:27, T wave inversion now evident in Anterior leads Code Status & VTE Plan Code Status DNR/DNI VTE Prophylaxis Plan VTE Prophylaxis will be ordered: Yes Supervising Physician Co-Signing Physician Notes Attending addendum: I have physically seen this patient, have supervised the ZIA's activities, and agree with the H&P unless as otherwise noted. Assessment and Plan: Failure to thrive in adult/advancing severe dementia- Admit to medical surgical Patient not significantly interactive due to progressive dementia Medical workup negative: CT scan head negative, CT scan cervical spine negative, CT scan abdomen pelvis negative, and chest x-ray negative Symptoms are likely a function of ongoing worsening Alzheimer's dementia, as notes worsening symptoms over the past several weeks Order COVID-19, influenza and RSV screening N.p.o. overnight until assessed by speech therapy Consult PT/OT Patient will likely need to be moved to an EC as opposed to continuing at personal-half-way where she is presently living Hypertension- Continue lisinopril/HCTZ with hold parameters PG Care Time/CCT Total # of Minutes Spent Total Time Spent with Patient: Total time spent is greater than 50% in coordination of care (as documented) at patient's floor/unit and/or counseling patient: C[place] [address] INT INP/OBS CARE 2/55MIN Patient Type Established Medical Decision Making Moderate Complexity Diagnoses Failure to thrive in adult R62.7 Advancing dementia F03.90 Twitching R25.3 Hypertension I10
[2023-11-04] MEDS ORDERED: ACETAMINOPHEN 1,000 MG/100 ML VIAL IV PRN (20:07)
[2023-11-04 20:40] LABS: Influenza A virus by PCR Negative (Neg); Influenza B virus by PCR Negative (Neg); RSV by PCR Negative (Neg); SARS CoV2 RNA(COVID-19) Ceph NEGATIVE (Negative)
[2023-11-04] MEDS: MEMANTINE HCL 5 MG TAB PO SCH (23:23)
[2023-11-04] MEDS: ASPIRIN 81 MG ECTAB PO SCH (23:23)
[2023-11-05] MEDS: DONEPEZIL HCL 10 MG TAB PO SCH (08:26)
[2023-11-05] MEDS: PNEUMOCOCCAL VACCINE (PCV20) 20-VAL CONJ-DIP CRM/PF 0.5 ML SYR IM ONE (08:27)
[2023-11-05 08:46] LABS: Hematocrit (blood only) 36.1 % (37.0-47.0); Hemoglobin 12.7 g/dl (12.0-16.0); Mean Corpuscular Hgb Conc 35.2 g/dL (32.0-36.0); Mean Corpuscular Volume 90.9 fL (80.0-100.0); Platelet Count 220 K/uL (130-400); RDW Coefficient of Variation 13.2 % (11.5-14.5); RDW Standard Deviation 43.8 fL (36.4-46.3); Red Blood Count 3.97 M/uL (4.20-5.40); White Blood Count 5.53 K/ul (4.8-10.8)
[2023-11-05 09:06] LABS: BUN Creatinine Ratio 21.7 (10-20); Creatinine Clr Calc Pharmacy 63.6 ml/min; Est GFR (African American) 99.1 ml/min; Est GFR (Non-African American) 85.5 ml/min; Magnesium 1.8 mg/dl (1.7-2.4); Potassium 4.2 mmol/L (3.5-5.1)
--- NOTE | 2023-11-05 13:51 | Hospitalist Progress Note ---
Date of Service November 05, 2023 Assessment & Plan (1) Neurologic gait dysfunction: Plan: P/w fairly acute onset inability to ambulate short distances about 3 weeks ago. No fevers, still eating, no complaints of back or leg pain but does report chronic knee pains as per Patient has known severe Alzheimer's dementia which appears to be progressing causing bilateral lower extremity weakness and possible myoclonus No metabolic abnormalities to suggest ongoing decline over the past [address] of head and brain without contrast, CT of the cervical spine, chest x-ray, and CT abdomen pelvis with contrast were unremarkable Labs essentially all normal, no evidence of infection anywhere Discussed care with -he would like to pursue MRI brain and lumbar spine to look for etiology of this acute change. Will also consult Neurology for further opinion-previous MRI 2018 as per Neuro outpt notes states appearance/raise question of NPH Does have urinary incontinence but unclear if this is chronic (2) Twitching: Plan: Has developed myoclonic jerks and tremor in bilateral upper extremities as per over the last 3 weeks Workup to include CT of the head and brain without contrast was negative for acute findings, normal labs, normal vitals, no infection, etc, normal VBG Consult Neurology for further opinion (3) Advancing dementia: Plan: Continue donepezil and memantine Is eating when fed but eats with eyes closed (new for her as per ) (4) Hypertension: Plan: Currently stable holding home lisinoprilhydrochlorothiazide Plan DVT proph-add Lovenox Dispo-continued stay Discussed care with on phone on 11/04 Admission and Anticipated Discharge Date Admission Date: November 04, 2023 Results & Data Results & Data Vital Signs (Past 12 Hours) Vital Signs Temp Pulse Resp BP Pulse Ox O2 Del Method 11/05/23 07:26 36.8 C 77 16 134/79 99 Room Air PG Care Time/CCT Total # of Minutes Spent Total Time Spent with Patient: Total time spent is greater than 50% in coordination of care (as documented) at patient's floor/unit and/or counseling patient: Coding Level of Care Code 07076 SUB INP/OBS CARE 2/35MIN Diagnoses Neurologic gait dysfunction R26.9 Twitching R25.3 Advancing dementia F03.90 Hypertension I10
[2023-11-05] MEDS: GADOBUTROL 65ML VIAL IV ONE (18:17)
--- NOTE | 2023-11-05 18:47 | Magnetic Resonance Report ---
MR lumbar spine wo con CLINICAL HISTORY: bilateral tremor,inability to walk x 3 weeks TECHNIQUE: Multiplanar sequences through the lumbar spine were obtained, without intravenous contrast . Comparison: Comparison is made to CT abdomen pelvis 10/15/2023 FINDINGS: The alignment is anatomical. L1-L2: No significant abnormality. L2-L3: Broad-based posterior disc bulge is seen. There is severe right and moderate left neural prashanth inal stenosis. L3-L4: Broad-based posterior disc bulge results in severe right and mild left neuroforaminal stenosis . L4-L5: Broad-based posterior disc bulge results in mild right and moderate left neural foraminal sten osis. L5-S1: Bilateral facet arthropathy results in mild neural foraminal stenosis. The spinal ligaments are intact, without evidence of disruption or abnormal signal intensity. The spi nal cord is normal in signal intensity and there is no evidence of cord contusion. There is no eviden ce of an extradural, intradural, extramedullary or intramedullary lesion. Visualized soft tissues are normal. IMPRESSION: Multilevel degenerative changes with up to severe right and moderate left neural foraminal stenosis. ACT 112: Negative or not required by law. Electronically signed by: Duncan Ibarra M.D. 11/05/2023 6:46 PM
--- NOTE | 2023-11-05 18:48 | Magnetic Resonance Report ---
MR brain wo/w con CLINICAL HISTORY: bilateral tremor,inability to walk x 3 weeks TECHNIQUE: Multiplanar and multisequence MR images of the brain were obtained prior to and following administration of gadolinium contrast. Comparison: None available at the time of this dictation. FINDINGS: No abnormal restricted diffusion is identified. Foci of T2 and FLAIR hyperintensity are noted in the paraventricular areas consistent with chronic small vessel ischemic disease. Ex vacuo ventriculomegal y and sulcal enlargement is noted compatible with diffuse volume loss. No mass or abnormal enhancemen t is seen. There is no mass effect or midline shift. There is no evidence of acute intraparenchymal h emorrhage. No extra axial fluid collections are seen. The corpus callosum, pituitary gland, and cereb ellar tonsils appear grossly unremarkable. Flow voids of the major intracranial arterial vessels are identified. The imaged portions of the para nasal sinuses, mastoid air cells, and orbits are unremarkable. IMPRESSION: Chronic volume loss and age related white matter changes without evidence of acute abnormality. ACT 112: Negative or not required by law. Electronically signed by: Duncan Ibarra M.D. 11/05/2023 6:47 PM
--- NOTE | 2023-11-05 19:44 | Communication Note ---
Date of Service: November 05, 2023 Discussed the MRI results of the lumbar spine and brain with the patient's daughter on the phone as per 's request. I suspect that perhaps her lumb ar herniated disc with severe stenosis are contributing to her lower extremity weakness and inability to walk over the last month. The daughter has discussed with her dad (the patient's ) and they have decided they would like to enroll her mom in hospice based on her progressive severe dementia. I will place a consult to case management to assist with facilitating hospice referral and plan to get the patient back to [facility] when possible with hospice.
--- NOTE | 2023-11-05 21:45 | Electrocardiogram Report ---
Test Reason : Blood Pressure : / mmHG Vent. Rate : 076 BPM Atrial Rate : 076 BPM P-R Int : 164 ms QRS Dur : 088 ms QT Int : 370 ms P-R-T Axes : 000 005 021 degrees QTc Int : 416 ms Normal sinus rhythm T wave abnormality, consider anterior ischemia When compared with ECG of 17-OCT-2022 16:27, T wave inversion now evident in Anterior leads Confirmed by Nolan Maharaj ([id number]) on 11/05/2023 9:44:48 PM Referred By: REFERRED SELF Confirmed By:Nolan Maharaj
--- NOTE | 2023-11-06 10:45 | Neurology Consultation ---
Date of Consultation November 06, 2023 Assessment & Plan (1) Neurologic gait dysfunction: Suspect possible worsening deconditioning in setting of progressive dementia vs. possible lumbar radiculopathy Noted bilateral neuroforaminal stenosis per MRI Agree with addressing goals of care/consideration of Hospice Continue to monitor mentation/neurological assessments Continue to provide for safety VTE prophylaxis Telehealth Consultation Telehealth Information Telehealth Information: I performed this visit using a real-time telehealth connection between my location and the patients location ([facility]). After connecting through interactive tele-video, patient was identified by name and date of and/or wristband check.Patient (or authorized healthcare field marketing representative) was informed that this was a telemedicine visit and it was being conducted confidentially over secure lines. My office door was closed and no one else was present in the room with me.Patient (or authorized healthcare field marketing representative) provided consent to proceed with the visit, expressed an understanding of privacy and security of the telemedicine visit, and gave permission to have a hospital field marketing representative in the room in order to assist with the visit and to conduct portions of the visit, as needed. I informed the patient (or authorized healthcare field marketing representative) that I reviewed their record and presented the opportunity for them to ask any questions regarding the visit today. The patient agreed to participate. History of Present Illness Reason for Consultation: Ambulation difficulty Requesting Physician: Dr. Bro Attending Physician: Gertrude Bro MD History of Present Illness 83yo female with significant past medical history of dementia, HTN, hyperlipidemia presented with concern of ongoing fever worsening confusion and difficulty with ambulation/failure to thrive. Unfortunately it appears she is no longer able to perform ADLs to keep up with assisted living level of care where she is currently residing. She has undergone MRI brain revealing no overt evidence of acute intracranial abnormality. She has undergone MRI lumbar spine yielding significant bilateral neuroforaminal stenosis. I have performed televideo consultation. She is awake and moving all extremities. She is non verbal. RN at bedside helpful with examination reports she will no longer feed herself therefore can likely not return to assisted living. It is documented that family has elevted Hospice care at this time for which I agree with. Patient appears oblivious as she will not acknowledge the televideo screen. Appears in no distress Allergies Allergy/AdvReac Type Severity Reaction Status Date / Time No Known Allergies Allergy Verified 09/25/22 14:44 Home Medications Medication Instructions Recorded Confirmed Type [place]/Co 10 1 tab PO QAM 01/03/18 09/25/22 History cyanocobalamin (vitamin B-12) 1,000 mcg PO QAM 01/03/18 09/25/22 History 1,000 mcg tablet (Vitamin B-12) lisinopril 10 1 tab PO QAM 01/03/18 09/25/22 History mg-hydrochlorothiazide 12.5 mg tablet multivitamin 1 tab PO QAM 01/03/18 09/25/22 History aspirin 81 mg tablet,delayed 81 mg PO BID #84 tabs 09/28/18 09/25/22 Rx release (Ecotrin Low Strength) alpha lipoic acid 300 mg capsule 300 mg PO BID 09/13/21 09/25/22 History donepezil 10 mg tablet 10 mg PO DAILY 09/13/21 09/25/22 History propylene glycol 0.6 % eye drops 1 drp ophthalmic (eye) DAILY PRN 09/13/21 09/25/22 History (Systane Balance) zinc 50 mg tablet 50 mg PO DAILY 09/13/21 09/25/22 History ascorbic acid (vitamin C) 250 mg 250 mg PO DAILY #30 tabs 02/21/22 09/25/22 Rx chewable tablet fluticasone propionate 50 2 spray intranasal DAILY #16 grams 04/13/22 09/25/22 Rx mcg/actuation nasal spray,suspension (Flonase Allergy Relief) memantine 5 mg tablet 5 mg PO BID #60 tabs 08/08/22 09/25/22 Rx acetaminophen 325 mg tablet 650 mg (2 x 325 mg) PO Q6H PRN 10/17/22 Rx (Tylenol) pain #30 tabs Patient History Medical History Abdominal mass, left lower quadrant Obesity Osteoarthritis GERD (gastroesophageal reflux disease) Surgical History History of bilateral hip replacements History of left hip replacement 02/08/18: SAB x1 at L3-L4 at [facility] History of hysteroscopy D+C Hx of colonoscopy Nausea and vomiting after administration of anesthetic agent Hx of laparoscopy DERMOID CYST REMOVED Hx of hysterectomy BSO Family History Grandmother Diabetes mellitus, type 2 Mother CHF (congestive heart failure), NYHA class I Myocardial infarction Denies family history of Ovarian cancer Breast cancer Lung cancer Colorectal cancer Social History Smoking Status: Never smoker Second Hand Exposure: No; Do You Dip or Chew Tobacco: No; Hx Alcohol Use: No Hx Substance Use: No Preferred Language: Bengali Communication Ability: Unable Communication Ability Comment: mild cognitive impairment Visual Impairment: Limited Hearing Ability: Normal Nursery Helper Required: No Beliefs That Will Affect Care: None marital status: Current Living Situation: Personal Care Facility current occupational status: retired Feels Safe at Home: Declines to Answer Childhood Exposure to Second-Hand Smoke: Yes (father cigars) Diet: regular caffeine: Yes Dental Care, Regularly: Yes Physical Activity Frequency: Does not Exercise Seatbelt Use: always Sunscreen Use: Yes Do you think of yourself as: straight/heterosexual Assistive Devices: Walker and Wheelchair Physical Exam Neurological Examination: Mental Status: Awake Nonverbal Not interacting with environment CN testing: I: Unable to accurately assess II: Unable to accurately assess III/IV/: No evidence of gaze preference, hippus, nystagmus or roving eye movements V: Unable to accurately assess VII: Facial movements appear without evidence of asymmetry VIII: Difficult to reliably assess IX/X: Palate is unable to be accurately visualized XI: Unable to accurately assess XII: Unable to accurately assess Motor exam: Moves all extremities spontaneously Sensory: Unable to accurately assess Coordination: Deferred Reflexes: Deferred Gait: Deferred Results & Data Vital Signs (Past 12 Hours) Vital Signs Temp Pulse Resp BP Pulse Ox O2 Del Method 11/06/23 07:49 36.9 C 68 18 128/81 97 Room Air Diagnostic Findings Brain MRI 11/05/23 13:43 MR brain wo/w con CLINICAL HISTORY: bilateral tremor,inability to walk x 3 weeks TECHNIQUE: Multiplanar and multisequence MR images of the brain were obtained prior to and following administration of gadolinium contrast. Comparison: None available at the time of this dictation. FINDINGS: No abnormal restricted diffusion is identified. Foci of T2 and FLAIR hyperintensity are noted in the paraventricular areas consistent with chronic small vessel ischemic disease. Ex vacuo ventriculomegaly and sulcal enlargement is noted compatible with diffuse volume loss. No mass or abnormal enhancement is seen. There is no mass effect or midline shift. There is no evidence of acute intraparenchymal hemorrhage. No extra axial fluid collections are seen. The corpus callosum, pituitary gland, and cerebellar tonsils appear grossly unremarkable. Flow voids of the major intracranial arterial vessels are identified. The imaged portions of the paranasal sinuses, mastoid air cells, and orbits are unremarkable. IMPRESSION: Chronic volume loss and age related white matter changes without evidence of acute abnormality. ACT 112: Negative or not required by law. Electronically signed by: Duncan Ibarra M.D. 11/05/2023 6:47 PM Lumbar Spine MRI 11/05/23 13:43 MR lumbar spine wo con CLINICAL HISTORY: bilateral tremor,inability to walk x 3 weeks TECHNIQUE: Multiplanar sequences through the lumbar spine were obtained, without intravenous contrast. Comparison: Comparison is made to CT abdomen pelvis 10/15/2023 FINDINGS: The alignment is anatomical. L1-L2: No significant abnormality. L2-L3: Broad-based posterior disc bulge is seen. There is severe right and moderate left neural foraminal stenosis. L3-L4: Broad-based posterior disc bulge results in severe right and mild left neuroforaminal stenosis. L4-L5: Broad-based posterior disc bulge results in mild right and moderate left neural foraminal stenosis. L5-S1: Bilateral facet arthropathy results in mild neural foraminal stenosis. The spinal ligaments are intact, without evidence of disruption or abnormal signal intensity. The spinal cord is normal in signal intensity and there is no evidence of cord contusion. There is no evidence of an extradural, intradural, extramedullary or intramedullary lesion. Visualized soft tissues are normal. IMPRESSION: Multilevel degenerative changes with up to severe right and moderate left neural foraminal stenosis. ACT 112: Negative or not required by law. Electronically signed by: Duncan Ibarra M.D. 11/05/2023 6:46 PM Medications Administered Home Medications Medication Instructions Recorded Confirmed Last Taken [place]/Co 10 1 tab PO QAM 01/03/18 09/25/22 09/20/18 06:00 cyanocobalamin (vitamin B-12) 1,000 mcg PO QAM 01/03/18 09/25/22 09/26/18 07:00 1,000 mcg tablet (Vitamin B-12) lisinopril 10 1 tab PO QAM 01/03/18 09/25/22 09/26/18 06:00 mg-hydrochlorothiazide 12.5 mg tablet multivitamin 1 tab PO QAM 01/03/18 09/25/22 09/26/18 06:00 aspirin 81 mg tablet,delayed 81 mg PO BID #84 tabs 09/28/18 09/25/22 Unknown release (Ecotrin Low Strength) alpha lipoic acid 300 mg capsule 300 mg PO BID 09/13/21 09/25/22 Unknown donepezil 10 mg tablet 10 mg PO DAILY 09/13/21 09/25/22 Unknown propylene glycol 0.6 % eye drops 1 drp ophthalmic (eye) DAILY PRN 09/13/21 09/25/22 Unknown (Systane Balance) zinc 50 mg tablet 50 mg PO DAILY 09/13/21 09/25/22 Unknown ascorbic acid (vitamin C) 250 mg 250 mg PO DAILY #30 tabs 02/21/22 09/25/22 Unknown chewable tablet fluticasone propionate 50 2 spray intranasal DAILY #16 grams 04/13/22 09/25/22 Unknown mcg/actuation nasal spray,suspension (Flonase Allergy Relief) memantine 5 mg tablet 5 mg PO BID #60 tabs 08/08/22 09/25/22 Unknown acetaminophen 325 mg tablet 650 mg (2 x 325 mg) PO Q6H PRN 10/17/22 Unknown (Tylenol) pain #30 tabs Active Medications Generic Name Dose Route Start Last Admin Trade Name Freq PRN Reason Stop Dose Admin Aspirin 81 mg 11/04/23 22:57 11/06/23 08:07 Aspirin 81 Mg Ectab PO 12/04/23 22:56 81 mg BID JUAN M Administration Donepezil HCl 10 mg 11/05/23 09:00 11/06/23 08:06 Donepezil Hcl 10 Mg Tab PO 12/05/23 08:59 10 mg DAILY JUAN M Administration Memantine 5 mg 11/04/23 22:57 11/06/23 08:06 Memantine Hcl 5 Mg Tab PO 12/04/23 22:56 5 mg BID JUAN M Administration
[2023-11-06] MEDS ORDERED: ACETAMINOPHEN 325 MG TAB PO PRN (16:05)
--- NOTE | 2023-11-06 16:05 | Hospitalist Progress Note ---
Date of Service November 06, 2023 Assessment & Plan (1) Lumbar stenosis: Plan: P/w fairly acute onset inability to ambulate short distances about 3 weeks ago. No fevers, still eating, no complaints of back or leg pain but does report chronic knee pains as per Patient has known severe Alzheimer's dementia which appears to be progressing causing bilateral lower extremity weakness and possible myoclonus No metabolic abnormalities to suggest ongoing decline over the past [address] of head and brain without contrast, CT of the cervical spine, chest x-ray, and CT abdomen pelvis with contrast were unremarkable Labs essentially all normal, no evidence of infection anywhere Does have intermittent urinary incontinence but unclear if this is chronic Discussed care with -wanted to pursue MRI brain and lumbar spine to look for etiology of this acute change. 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 Is in agreement with palliative/hospice care (2) Alzheimer dementia: Plan: Steadily declining over several years, severe Now has to be fed, and unable to walk or perform ADLs. Is mostly nonverbal Will now enroll in hospice (3) Twitching: Plan: Has developed myoclonic jerks and tremor in bilateral upper extremities as per over the last 3 weeks Workup to include CT of the head and brain without contrast was negative for acute findings, normal labs, normal vitals, no infection, etc, normal VBG Consult Neurology for further opinion appreciated-thinks it is related to general decline with dementia MRI brain negative Continue donepezil and memantine (4) Hypertension: Plan: Blood pressures are normal without taking lisinopril HCT-will discontinue permanently on hospice Can continue baby aspirin once daily Plan DVT proph- Lovenox ordered but will now discontinue as she is enrolling in hospice and this is uncomfortable Dispo-continued stay while awaiting [employer] to deliver equipment for hospice care. Plan to discharge to [facility] with hospice on 11/06 Discussed care with on phone on 11/04 and again on 11/05 Admission and Anticipated Discharge Date Admission Date: November 04, 2023 Subjective Pt much more alert and awake today. Still mostly nonverbal. Is eating as per nursing I discussed her care with her who says she is "like diamonds" today, meaning much improved. He was pleased with her care and looks forward to getting her back to [facility] with hospice Physical Exam Constitutional: WD/WN, vitals as above Respiratory: normal respiratory effort, lungs clear to auscultation Cardiovascular: RRR, no murmur, no edema Gastrointestinal (Abdomen): normal bowel sounds, soft, nontender, no hepatosplenomegaly Psychiatric: Orientation: alert; + not oriented x 3 Results & Data Results & Data Vital Signs (Past 12 Hours) Vital Signs Temp Pulse Resp BP Pulse Ox O2 Del Method 11/06/23 14:42 36.7 C 82 16 123/80 96 Room Air 11/06/23 07:49 36.9 C 68 18 128/81 97 Room Air PG Care Time/CCT Total # of Minutes Spent Total Time Spent with Patient: Total time spent is greater than 50% in coordination of care (as documented) at patient's floor/unit and/or counseling patient: Coding Level of Care Code 99100 SUB INP/OBS CARE 2/35MIN Diagnoses Lumbar stenosis M48.061 Alzheimer dementia G30.9; F02.80 Twitching R25.3 Hypertension I10
--- NOTE | 2023-11-06 20:57 | Electrocardiogram Report ---
Test Reason : Blood Pressure : / mmHG Vent. Rate : 067 BPM Atrial Rate : 067 BPM P-R Int : 168 ms QRS Dur : 100 ms QT Int : 408 ms P-R-T Axes : 026 012 047 degrees QTc Int : 431 ms Normal sinus rhythm Normal ECG When compared with ECG of 04-NOV-2023 16:33, T wave inversion less evident in Anterior leads Confirmed by Nolan Maahraj ([id number]) on 11/06/2023 8:56:42 PM Referred By: REFERRED SELF Confirmed By:Nolan Maharaj
[2023-11-07] MEDS: ASPIRIN 81 MG CHEW PO SCH (08:39)
[2023-11-07] MEDS ORDERED: ASPIRIN 81 MG ECTAB PO SCH (09:00)
--- NOTE | 2023-11-07 12:05 | Discharge Summary ---
Discharge Summary Date of Service November 07, 2023 Principal Dx & Hospital Course #1 = Principal Diagnosis (1) Lumbar stenosis: P/w fairly acute onset inability to ambulate short distances about 3 weeks ago. No fevers, still eating, no complaints of back or leg pain but does report chronic knee pains as per Patient has known severe Alzheimer's dementia which appears to be progressing causing bilateral lower extremity weakness and possible myoclonus No metabolic abnormalities to suggest ongoing decline over the past [address] of head and brain without contrast, CT of the cervical spine, chest x-ray, and CT abdomen pelvis with contrast were unremarkable Labs essentially all normal, no evidence of infection anywhere Does have intermittent urinary incontinence but unclear if this is chronic Discussed care with -wanted to pursue MRI brain and lumbar spine to look for etiology of this acute change. 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 Is in agreement with palliative/hospice care (2) Alzheimer dementia: Steadily declining over several years, severe Now has to be fed, and unable to walk or perform ADLs. Is mostly nonverbal Will now enroll in hospice (3) Twitching: Has developed myoclonic jerks and tremor in bilateral upper extremities as per over the last 3 weeks Workup to include CT of the head and brain without contrast was negative for acute findings, normal labs, normal vitals, no infection, etc, normal VBG Consult Neurology for further opinion appreciated-thinks it is related to general decline with dementia MRI brain negative Continue donepezil and memantine for now for dementia but can likely be stopped on hospice (4) Hypertension: Blood pressures are normal without taking lisinopril HCT-will discontinue permanently on hospice Can continue baby aspirin once daily for now Plan DVT proph- none, is enrolling in hospice and SQ injections are uncomfortable Dispo-dc to discharge to [facility] with [facility] on 11/06 Discussed care with on phone on 11/04 and again on 11/05 Notes For Next Care Provider Enrolling in hospice Medication Changes From Visit Discontinued lisinopril-HCT Discontinued alpha lipoic acid, ascorbic acid, B12, multivitamin, Gattman CoQ10 Admission HPI Per Admitting Provider Pat is an 83-year-old female with a past medical history significant for Alzheimer's dementia, aortic stenosis, hypertension, hyperlipidemia, and GERD who presented to the [facility] ED via EMS from [facility] with complaints of fever, increased confusion, and extremity twitching over the past 24 hours. She was noted to be tachycardic on arrival at 114, tachypneic at 25, but otherwise stable. Labs including CBC, CMP, TSH, and UA were unremarkable. Chest x-ray was read as cardiomegaly without acute process. CT of the head and brain without contrast and CT of the cervical spine without contrast were read as negative for acute findings. CT of the abdomen pelvis with IV contrast noted urinary bladder wall thickening is suboptimally visualized secondary to streak artifact from bilateral hip arthroplasties. Intermediate exophytic 1.2 cm lesion of the inferior pole left kidney with equivocal lesion of the superior pole. Correlation with nonemergent follow-up renal ultrasound recommended. Prior to admission the patient was given a dose of Tylenol and 500 mL normal saline. The ED explains that the patient is currently currently requiring more care than the [facility] can provide at t his time. Patient was lying in bed in no acute distress at the time of exam with her bedside, history was obtained from the patient's due to her baseline mental status. Her explains that the patient has had a ongoing clinical mental decline since her original diagnosis of Alzheimer's approximately 6 years ago. He explains that she will recognize them but does not remember his name. Approximately 3 weeks ago she became progressively weak in the bilateral lower extremities to the point that staff needed to use a wheelchair to help safely transport her. She has been eating less frequently and lower quantities. Over the past 3 days she mainly keeps her eyes closed and has intermittent jerking/twitching. He explains that he feels like she needs more care than her current facility can provide. He confirms that she is a DNR/DNI. Please refer to Dr. Stack's attestation for any changes to the treatment plan Discharge Exam Constitutional WD/WN, vitals as above Psychiatric Orientation: alert; + not oriented x 3 Updated Medication List Medication Instructions Recorded Confirmed Type Gattman/Co 10 1 tab PO QAM 01/03/18 09/25/22 History cyanocobalamin (vitamin B-12) 1,000 mcg PO QAM 01/03/18 09/25/22 History 1,000 mcg tablet (Vitamin B-12) lisinopril 10 1 tab PO QAM 01/03/18 09/25/22 History mg-hydrochlorothiazide 12.5 mg tablet multivitamin 1 tab PO QAM 01/03/18 09/25/22 History aspirin 81 mg tablet,delayed 81 mg PO BID #84 tabs 09/28/18 09/25/22 Rx release (Ecotrin Low Strength) alpha lipoic acid 300 mg capsule 300 mg PO BID 09/13/21 09/25/22 History donepezil 10 mg tablet 10 mg PO DAILY 09/13/21 09/25/22 History propylene glycol 0.6 % eye drops 1 drp ophthalmic (eye) DAILY PRN 09/13/21 09/25/22 History (Systane Balance) zinc 50 mg tablet 50 mg PO DAILY 09/13/21 09/25/22 History ascorbic acid (vitamin C) 250 mg 250 mg PO DAILY #30 tabs 02/21/22 09/25/22 Rx chewable tablet fluticasone propionate 50 2 spray intranasal DAILY #16 grams 04/13/22 09/25/22 Rx mcg/actuation nasal spray,suspension (Flonase Allergy Relief) memantine 5 mg tablet 5 mg PO BID #60 tabs 08/08/22 09/25/22 Rx acetaminophen 325 mg tablet 650 mg (2 x 325 mg) PO Q6H PRN 10/17/22 Rx (Tylenol) pain #30 tabs Hospital Stay Data Consultations 11/04/23 19:21 ED Decision to Admit Stat 11/05/23 13:37 Consult Neurology Routine Diagnostic Imagining Performed 11/04/23 17:04 CT abd pelvis IV con only Stat CT head/brain wo con Stat 11/04/23 17:06 CT cervical spine wo con Stat 11/05/23 13:43 MR brain wo/w con Urgent MR lumbar spine wo con Urgent Pending Results Patient Have Any Pending Studies at Discharge: No Discharge Instructions Given to Patient (Per Discharging Provider) You were admitted for inability to ambulate and increased muscle twitching in the arms. This is likely secondary to progressive severe dementia as well as some lumbar spinal stenosis from herniated disks. You and your family have chosen to return to [facility] and enroll in hospice care to focus on comfort. You can continue your memantine and donepezil for now for dementia although these medications could be discontinued as there is no good benefit in the short-term. Your lisinopril-HCTZ medication was discontinued as your blood pressures have been normal without taking it. You can continue your baby aspirin for now if you choose. You can also stop taking all the vitamins and supplements to reduce the number of pills that you take. Total Time Total Time Spent Total Time Spent (In Minutes): 35 min Total Time Includes: Examination of the Patient, Discharge Planning and Medication Reconciliation Coding Level of Care Code 74930 INP/OBS DISCH >30 MIN Diagnoses Lumbar stenosis M48.061 Alzheimer dementia G30.9; F02.80 Twitching R25.3 Hypertension I10
== END 2023-11-07 14:05 | disposition hospice, inpatient (51) | DRG 56 ==
LOC: ED 15:31 → SUATTDRO 20:05 → 3N 20:05